=== PATIENT | female | born 1965 | race Caucasian/White ===

== ENCOUNTER 2019-09-11 17:00 | Emergency (ER) | payer MEDICAID, SELFPAY ==
[2019-09-11 17:28] VITALS: BP 155/99; PULSE 76; RESP 14; TEMP 36.6; O2SAT 96; BMI 35.5
--- NOTE | 2019-09-11 17:31 | XR_ITS ---
WS: [id number] XR ankle RT min 3V* [id number] REASON FOR EXAM: fall FINDINGS: The ankle mortise is normal. The fibula, talus, and tibia show no definite fractures. The posterior shelf the tibia was intact. The visible portion of the upper foot is normal. XR/XR ankle RT min 3V* [id number] IMPRESSION: Negative right ankle for fractures
--- NOTE | 2019-09-11 17:50 | W.ED.EXTPRO ---
HPI - Extremity Problem General: Chief complaint: Extremity Injury, Lower Stated complaint: ankle pain Time Seen by Provider: 09/11/19 17:40 History of Present Illness: HPI Narrative: Patient complains about right ankle pain after stepping backwards in her foot turned and now she has had pain in that ankle happened 45 minutes ago Complaint: joint pain Onset (ago): minute(s) Pain Consistency: constant Location: right and lower extremity Severity scale (1-10): 4 Quality: aching Radiation: none Relieving factors: immobilization and rest Exacerbating factors: range of motion and weight bearing Associated symptoms: Reports no associated symptoms; Deny chest pain, fever(s) or rash Review of Systems Const: Denies: fever(s), chills or body aches Eyes: Denies: change in vision or blurry vision ENMT: Denies: throat pain or nasal congestion Card: Denies: chest pain or dyspnea on exertion Resp: Denies: dyspnea, productive cough or non-productive cough GI: Denies: abdominal pain, nausea or vomiting Musc: Denies: extremity pain Skin/Breast: Denies: rash Neuro: Denies: headache(s) Psych: Denies: anxiety or depression Jason/Lymph: Denies: easy bruising PFSH ED PFSH: Social History Smoking and tobacco status: former smoker Physical Exam Extremity: RIGHT LOWER EXTREMITY: Yes foot & digits (Tender to lateral malleus mild swelling distal neurovascular intact) Course Vital Signs: Vital signs: Vital Signs Temperature 97.9 F 09/11/19 17:28 Pulse Rate 76 09/11/19 17:28 Respiratory Rate 14 09/11/19 17:28 Blood Pressure 155/99 09/11/19 17:28 Pulse Oximetry 96 09/11/19 17:28 Discharge Plan Discharge Condition: Good Coding Level of Care Code 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
[2019-09-11 17:57] VITALS: BP 117/68; PULSE 72; RESP 18; O2SAT 98
== END 2019-09-11 18:15 | disposition home or self-care (01) ==
PROVIDERS: Emergency Provider Nurse Practitioner Family
DX: M25.571 Pain in right ankle and joints of right foot (principal); Z87.891 Personal history of nicotine dependence
CPT/HCPCS: 12345; 73610; 99281; 99282

== ENCOUNTER → 2020-05-13 15:51 | Outpatient (BNVA) | payer MEDICAID, SELFPAY | PROVIDERS: Visit Provider Nurse Practitioner Family | DX: Z20.828 Contact with and (suspected) exposure to other viral communicable diseases (principal) | CPT/HCPCS: 87635 ==

== ENCOUNTER 2020-06-17 13:23 | Emergency (ER) | payer MEDICAID, SELFPAY ==
[2020-06-17 13:28] VITALS: BP 148/88; PULSE 103; RESP 20; TEMP 37.1; O2SAT 95; BMI 33.9
[2020-06-17 13:32] VITALS: BP 143/87; PULSE 96; RESP 16; O2SAT 96
--- NOTE | 2020-06-17 13:47 | CT_ITS ---
WS: [id number] CT ABDOMEN PELVIS TECHNIQUE: Noncontrast CT of the abdomen and pelvis with coronal and sagittal reformatted images. CLINICAL INFORMATION: acute bleeding COMPARISON: None. DLP: 1815.[address] scans at [facility] use at least one of these dose optimization techniques: automat ed exposure control; mA and/or kV adjustment per patient size (includes targeted exams where dose is matched to clinical indication); or iterative reconstruction. FINDINGS:Midline abdominal incision with low-attenuation fluid collection in the subcutaneous adipose tissue. This measures approximately 9.7 x 10.9 x 4.5 CM. Surrounding induration and inflammatory str anding. This extends along the ventral aspect of the rectus sheath. Noncontrast liver is normal. Cholecystectomy clips. Noncontrast spleen is normal. Normal GE junction . Adrenal glands are normal. No hydronephrosis in either kidney. Mild fatty atrophy of the pancreas. Lung bases are well aerated. Postoperative changes evidence of low rectosigmoid resection. No evidence of high-grade small or larg e bowel obstruction. Aortic calcification. Normal caliber abdominal aorta. No abdominal or pelvic lym phadenopathy. CT/CT abdomen pelvis wo con [id number] IMPRESSION: 1. Low-attenuation collection along the abdominal incision and ventral aspect of the rectus sheath measuring 9.7 x 10.9 x 4.5 CM likely hematoma. Small amoun t of surrounding induration and inflammatory stranding. 2. Evidence of flow rectosigmoid anastomosis. 3. Prior cholecystectomy. 4. No other significant findings. Notified Rush Aquino MD at 06/17/2020 3:04 PM.
--- NOTE | 2020-06-17 13:52 | ECG_ITS ---
[facility] Test Date: 2020-06-17 Pat Name: Nasrin Gilmore Department: Room: Gender: Female Carrier Blower: : 1965 Requested By: Rush Aquino Order Number: [id number] Maurilio MD: Marty Bhardwaj M.D. Measurements Intervals [place] Rate: 97 P: 38 SD: 174 QRS: -5 QRSD: 94 T: 22 QT: 325 QTc: 413 Interpretive Statements SINUS RHYTHM WITH OCCASIONAL VENTRICULAR PREMATURE COMPLEXES LOW QRS VOLTAGE IN PRECORDIAL LEADS [QRS DEFLECTION < 1.0 mV IN CHEST LEADS] POSSIBLE ANTERIOR MYOCARDIAL INFARCTION , PROBABLY OLD [30 ms Q WAVE IN V3/V4, OR R < 0.2 mV IN V4] No previous ECG available for comparison Electronically Signed On 06-17-2020 23:52:43 ROUGHER MACHINE OPERATOR by Marty Bhardwaj M.D. [id number]
--- NOTE | 2020-06-17 14:04 | W.ED.WOUNDLC ---
HPI - Wound/Laceration General: Chief Complaint: Wound/Laceration Stated Complaint: ab pain, passing blood Time Seen by Provider: 06/17/20 13:40 History of Present Illness: HPI narrative: The patient is a 55-year-old female who comes to the ER with acute bleeding of her belly. Approximately 4 weeks ago at [facility] she had surgery of her abdomen with a vertical incision to reanastomose her intestines. Prior to that she had had an ileostomy likely related to she says diverticulitis. She says they had to remove part of her large intestine and just reconnected it 4 weeks ago. Last night she sat down to use the restroom and the wound opened up with some bloody drainage. This morning she went to change her dressing and it began flowing like a fountain. She called her surgeon who recommended she come to the nearest facility. She arrives here and does have significant bleeding from a small open wound. Likely an open blood vessel somewhere. Review of Systems General: Reports: 10 or more systems reviewed and unremarkable except in HPI and below Const: Denies: fatigue Eyes: Denies: change in vision, blurry vision or eye redness ENMT: Denies: throat pain, swelling of lips/tongue, ear or mastoid pain or nasal congestion Card: Denies: chest pain, palpitations, irregular heart rhythm, edema, dyspnea on exertion or orthopnea Resp: Denies: dyspnea, productive cough or non-productive cough GI: Reports: abdominal pain and other (Acute bleeding); Denies: diarrhea or GI cramping : Denies: flank pain, difficulty voiding, urinary frequency or urinary urgency Musc: Denies: neck pain, back pain, extremity pain, joint pain, joint redness, limited range of motion or muscle weakness Skin/Breast: Denies: rash, pruritus, erythema, skin pain or skin tenderness Neuro: Denies: headache(s), numbness in extremities, weakness in extremities, sensory changes, difficulty walking, dizziness, confusion or Slurred speech present Psych: Denies: anxiety or depression Endo: Denies: polyuria All/Imm: Denies: urticaria, throat swelling or tongue swelling PFSH ED PFSH: Social History (Updated 05/13/20 @ 14:44 by Jordyn Novoa NP) Smoking and tobacco status: former smoker Alcohol intake: never Physical Exam Const: COMMON NORMALS: patient oriented x3 and alert GENERAL APPEARANCE: anxious and ill appearing NUTRITIONAL APPEARANCE: obese ORIENTATION/CONSCIOUSNESS: Yes oriented to person, Yes oriented to place and Yes oriented to time HENMT: COMMON NORMALS: normocephalic, external ears normal and Normal external nose present HEAD & SCALP: normal to inspection and normocephalic NOSE: Normal external nose present EXTERNAL EAR: Yes external ears normal MOUTH: Normal oral and palatal mucosa present THROAT: posterior oropharynx normal Eye: COMMON NORMALS: Equal, round and reactive pupils present and EOMs intact bilaterally GENERAL EYE: appearance normal, both eyes and all related structures PUPIL: Yes Equal, round and reactive pupils present Neck/C-Spine: COMMON NORMALS: full ROM, no lymphadenopathy, no meningeal signs and no JVD GENERAL: Yes normal visual inspection Lymph: LYMPHATIC: no lymphadenopathy noted Chest: COMMONS NORMALS: normal inspection of the chest and normal palpation of entire chest wall Resp: COMMON NORMALS: normal respiratory effort, No retractions, No use of accessory muscles, clear to auscultation bilaterally and percussion normal EFFORT & INSPECTION: Yes able to speak in complete sentences AUSCULTATION: clear to auscultation bilaterally PERCUSSION: percussion normal Cardio: COMMON NORMALS: no JVD, regular rhythm, S1 normal heart sound present, S2 normal heart sound present and Peripheral pulses 2+ throughout RATE: tachycardic RHYTHM: regular rhythm HEART SOUNDS: S1 normal heart sound present and S2 normal heart sound present PERIPHERAL PULSES: Peripheral pulses 2+ throughout GI: COMMON NORMALS: Soft to palpation and no masses INSPECTION: Yes normal to inspection PALPATION: Yes Soft to palpation OTHER: The patient has a midline vertical surgical scar healing appropriately in most places. In the lower aspect there is an open area when there is no pressure the blood flows profusely. With application of a finger the bleeding stops. : COMMON NORMALS: Yes no CVA tenderness BLADDER/KIDNEY EXAM: Yes no CVA tenderness Back/Pelvis: COMMON NORMALS: no CVA tenderness, thoracic and lumbar spine normal to inspection, no thoracic nor lumbar tenderness and thoraco-lumbar ROM normal Extremity: COMMON NORMALS: normal to inspection, full ROM, capillary refill normal, no joint enlargement and no pedal edema GENERAL: Yes normal exam except as noted Neuro: COMMON NORMALS: patient oriented x3, CN's II-XII intact bilaterally, moves all extremities, no focal motor deficits, no sensory deficits noted and gait normal SENSORIUM/ORIENTATION: Yes alert, Yes oriented to person, Yes oriented to place and Yes oriented to time MENINGEAL SIGNS: Yes no meningeal signs Psych: COMMON NORMALS: mental status grossly normal, Normal thought process present, cooperative, normal affect and speech normal ATTITUDE: Yes calm SPEECH: Yes normal speech THOUGHT PROCESS: Normal thought process present Skin: COMMON NORMALS: no rashes or lesions noted NARRATIVE SKIN EXAM: Pale GENERAL SKIN EXAM: no rashes or lesions noted Course Vital Signs: Vital signs: Vital Signs Temperature 98.8 F 06/17/20 13:28 Pulse Rate 103 H 06/17/20 13:28 Respiratory Rate 20 H 06/17/20 13:28 Blood Pressure 148/88 06/17/20 13:28 Pulse Oximetry 95 06/17/20 13:28 MDM - Wound/Laceration MDM Narrative: Medical decision making narrative: Discussed with Dr. Peterson who recommends flying to [place] to see her surgeon. Dr. Skelton at [facility] accepts transfer to ED. Helicopter en route. Hanging 1 unit O- PRBC due to acute blood loss. IV fluids as well. She is stable for transfer. Removed bandages and bleeding controllable with a single finger of pressure. Placed in abdominal binder with pressure and bleeding controlled. CT pending. Transfer terri. Discharge Plan Discharge Patient Disposition: Xfer Other Clinical Impression: Abdominal hemorrhage Condition: Critical Coding Level of Care Code ED Coordinator Of Genetic Services for [facility] 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
[2020-06-17] MEDS: sodium chloride 0.9% 500 ML IV (14:14)
--- NOTE | 2020-06-17 14:21 | PC.NURSE ---
ABD BINDER PLACED ON PT WIHT ABD PADS TO CREATE PRESSURE DRESSING
[2020-06-17 14:35] VITALS: BP 143/87; PULSE 92; RESP 18; TEMP 36.7; O2SAT 97
[2020-06-17] MEDS: ondansetron 2 mg/ML SDV 2 mL 4 MG IVP (14:41)
[2020-06-17 14:45] LABS: Lactate (Lactic Acid level) 1.6 mmol/L (0.5-2.2)
[2020-06-17 14:46] VITALS: BP 143/87; PULSE 97; RESP 16; O2SAT 95
--- NOTE | 2020-06-17 14:47 | PC.NURSE ---
EMERGENT RELEASE BLOOD WAS STARTED ON PT AT 1435. SEE DOCUMENTED VS
[2020-06-17 14:51] VITALS: BP 143/87; PULSE 98; RESP 18; O2SAT 97
[2020-06-17 14:55] LABS: Alanine Aminotransferase 13 U/L (0-33); Albumin Level 4.1 g/dL (3.5-5.2); Alkaline Phosphatase 140 IU/L (35-105); Anion Gap 15.2 (5-19); Aspartate Amino Transferase 17 U/L (0-32); Blood Urea Nitrogen 9 mg/dL (6-20); Calcium 9.5 mg/dL (8.5-10.5); Carbon Dioxide 23 mmol/L (22-29); Chloride 98 mmol/L (98-107); Globulin 3.8 g/dL (1.3-4.6); Glucose 102 mg/dL (65-115); Lipase 35 U/L (13-60); NT Pro B Type Natriuretic Pept 88 pg/mL (0-125); Osmolality Calculated 275 mOsm/kg (285-295); Potassium 3.2 mmol/L (3.5-5.1); Sodium 133 mmol/L (136-145); Total Bilirubin 0.5 mg/dL (0.15-1.2); Total Protein 7.9 g/dL (6.6-8.7)
[2020-06-17 16:49] LABS: Basophils # 0.1 10^3/uL (0.0-0.1); Eosinophils # 0.2 10^3/uL (0.0-0.8); Hematocrit 36.5 % (37.0-47.0); Hemoglobin 11.3 g/dL (11.5-15.3); Lymphocytes # 3.6 10^3/uL (0.8-4.8); Lymphocytes % 34.5 %; Mean Corpuscular Hemoglobin 28.1 pg (28.0-34.0); Mean Corpuscular Volume 90.8 fL (81-99); Mean Platelet Volume 11.5 fL (7.4-10.4); Monocytes # 0.7 10^3/uL (0.2-0.9); Monocytes % 6.5 %; Neutrophils # 5.84 10^3/uL (1.8-7.7); Neutrophils % 55.7 %; Nucleated Red Blood Cells % 0 %; Platelet Count 248 10^3/cmm (130-400); Red Blood Count 4.02 10^6/uL (4.1-5.3); White Blood Count 10.5 10^3/uL (4.0-10.0)
== END 2020-06-17 15:03 | disposition other institution (70) ==
PROVIDERS: Nurse Practitioner Family; Emergency Provider Family Medicine
DX: R58 Hemorrhage, not elsewhere classified (principal); Z87.891 Personal history of nicotine dependence
CPT/HCPCS: 36415; 74176; 80053; 83605; 83690; 83880; 85025; 86850; 86900; 86920; 93005; 96374; 99285; J2405; J7040; P9016

== ENCOUNTER → 2020-12-22 12:00 | Outpatient (BNVA) | payer MEDICAID, SELFPAY | PROVIDERS: Visit Provider Nurse Practitioner Family | DX: Z20.822 Contact with and (suspected) exposure to COVID-19 (principal); J06.9 Acute upper respiratory infection, unspecified | CPT/HCPCS: 87426 ==

== ENCOUNTER → 2021-05-18 16:15 | Outpatient (BNVA) | payer MEDICAID, SELFPAY | PROVIDERS: Visit Provider Nurse Practitioner Family | DX: Z20.822 Contact with and (suspected) exposure to COVID-19 (principal); Z95.5 Presence of coronary angioplasty implant and graft; E11.9 Type 2 diabetes mellitus without complications; I10 Essential (primary) hypertension; Z87.891 Personal history of nicotine dependence; J06.9 Acute upper respiratory infection, unspecified; Z71.89 Other specified counseling | CPT/HCPCS: 87635 ==

== ENCOUNTER 2021-12-15 19:52 | Emergency (ER) | payer MEDICAID, SELFPAY ==
[2021-12-15 20:28] VITALS: BP 150/86; PULSE 89; RESP 19; TEMP 36.4; O2SAT 92
--- NOTE | 2021-12-15 20:33 | ECG_ITS ---
[facility] Test Date: 2021-12-15 Pat Name: Nasrin Gilmore Department: Room: Gender: Female Taxonomy Teacher: : 1965 Requested By: Tracy Adams Order Number: [id number] Maurilio MD: Justine Rascon M.D. Measurements Intervals [place] Rate: 88 P: 38 HI: 172 QRS: -3 QRSD: 95 T: 5 QT: 343 QTc: 415 Interpretive Statements SINUS RHYTHM MODERATE T-WAVE ABNORMALITY, CONSIDER ANTERIOR ISCHEMIA [-0.1+ mV T-WAVE IN V3/V4] Compared to ECG 06/17/2020 14:04:56 T-wave abnormality now present Possible ischemia now present Ventricular premature complex(es) no longer present Myocardial infarct finding no longer present Electronically Signed On 12-16-2021 17:34:41 CDT by Justine Rascon M.D. [email or web address] [facility] [email or web address]/store/[id number] f
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
[2021-12-15 21:30] VITALS: RESP 18
[2021-12-15] MEDS: morphine 4 mg/mL SDV 1 mL IM (21:30)
[2021-12-15] MEDS: ondansetron 2 mg/ML SDV 2 mL 4 MG IM (21:31)
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
[2021-12-15 21:34] LABS: Basophils # 0.1 10^3/uL (0.0-0.1); Basophils % 1.4 %; Eosinophils # 0.3 10^3/uL (0.0-0.8); Eosinophils % 2.8 %; Hemoglobin 13.1 g/dL (11.5-15.3); Lymphocytes % 39.6 %; Mean Corpuscular HGB Conc 32.8 g/dL (30.0-36.0); Mean Corpuscular Volume 88.7 fl (81-99); Monocytes # 0.5 10^3/uL (0.2-0.9); Monocytes % 4.9 %; Neutrophils # 5.11 10^3/uL (1.8-7.7); Nucleated Red Blood Cells % 0 %; Platelet Count 210 10^3/cmm (130-400); Red Blood Count 4.51 10^6/uL (4.1-5.3); Red Cell Distribution Width 13.3 % (12.1-15.1)
[2021-12-15 22:13] LABS: Blood Urea Nitrogen 13 mg/dL (6-20); Carbon Dioxide 24 mmol/L (22-29); Chloride 94 mmol/L (98-107); Glomerular Filtration Rate 74.7 mL/min (90-130); Glucose 371 mg/dL (65-115); Osmolality Calculated 285 mOsm/kg (285-295); Sodium 130 mmol/L (136-145)
[2021-12-15 22:14] LABS: Troponin(5th) Baseline 8 ng/L (0-10)
[2021-12-15 22:15] LABS: Anion Gap 16.4 (5-19); Potassium 4.4 mmol/L (3.5-5.1)
[2021-12-15] MEDS: ondansetron 2 mg/ML SDV 2 mL 4 MG IVP (22:17)
--- NOTE | 2021-12-15 22:23 | ECG_ITS ---
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 Measurements Intervals [place] Rate: 74 P: 50 [place]: 176 QRS: -7 QRSD: 98 T: 2 QT: 363 QTc: 404 Interpretive Statements SINUS RHYTHM ST DEVIATION AND MODERATE T-WAVE ABNORMALITY, CONSIDER ANTEROLATERAL ISCHEMIA [-0.1+ mV T-WAVE IN V3-V6] Compared to ECG 12/15/2021 20:25:43 No significant changes Electronically Signed On 12-16-2021 19:48:14 CDT by Madi Koroma M.D. [email or web address]/store/[id number]
[2021-12-15 23:07] VITALS: BP 123/71; PULSE 76; RESP 18; O2SAT 92
--- NOTE | 2021-12-15 23:21 | ECG_ITS ---
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 Measurements Intervals [place] Rate: 72 P: 42 [place]: 181 QRS: -7 QRSD: 98 T: -4 QT: 376 QTc: 412 Interpretive Statements SINUS RHYTHM ST DEVIATION AND MODERATE T-WAVE ABNORMALITY, CONSIDER ANTEROLATERAL ISCHEMIA [-0.1+ mV T-WAVE IN V3-V6] Compared to ECG 12/15/2021 22:23:18 No significant changes Electronically Signed On 12-16-2021 19:55:10 CDT by Madi Koroma M.D. [id number]
[2021-12-15 23:53] LABS: Troponin 5 2HR 6.04 ng/L (0-10)
[2021-12-16 00:32] LABS: Troponin 5 2HR Delta -1.96 ABS# (0-10)
== END 2021-12-16 00:07 | disposition home or self-care (01) ==
PROVIDERS: Emergency Medicine; Emergency Provider Emergency Medicine
DX: M54.2 Cervicalgia (principal); M54.9 Dorsalgia, unspecified; R07.9 Chest pain, unspecified; V43.32XA Unspecified car occupant injured in collision with other type car in nontraffic accident, initial encounter; I10 Essential (primary) hypertension; E78.5 Hyperlipidemia, unspecified; E11.9 Type 2 diabetes mellitus without complications
CPT/HCPCS: 70450; 71250; 72125; 74176; 80048; 84484; 85025; 93005; 96374; 99285; J2270; J2405

== ENCOUNTER 2022-06-30 23:36 | Emergency (ER) | payer MEDICAID, SELFPAY ==
--- NOTE | 2022-06-30 23:39 | XRR_ITS ---
PROCEDURE INFORMATION: Exam: XR Chest Exam date and time: 07/01/2022 12:17 AM Age: 57 years old Clinical indication: Pain; Chest pressure; Additional info: Cp TECHNIQUE: Imaging protocol: Radiologic exam of the chest. Views: 1 view. COM[place]ISON: [place] [id number] 12/15/2021 9:03 PM FINDINGS: Lungs: Mild lower lung atelectasis or scarring. No consolidation. Pleural spaces: Unremarkable. No pleural effusion. No pneumothorax. Heart/Mediastinum: Unremarkable. No cardiomegaly. Bones/joints: Unremarkable. XR/XR chest 1V portable [id number] IMPRESSION: No acute findings.
--- NOTE | 2022-06-30 23:39 | ECG_ITS ---
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 Measurements Intervals [place] Rate: 82 P: 54 [place]: 177 QRS: 25 QRSD: 84 T: 38 QT: 343 QTc: 402 Interpretive Statements SINUS RHYTHM Compared to ECG 12/15/2021 23:46:09 T-wave abnormality no longer present Possible ischemia no longer present Electronically Signed On 07-01-2022 7:40:15 CDT by Madi Koroma M.D. [id number]
[2022-06-30 23:42] VITALS: BP 158/86; PULSE 86; RESP 21; TEMP 36.9; O2SAT 96; BMI 34.3
--- NOTE | 2022-06-30 23:48 | ED_ITS ---
HPI - Chest Pain General: Chief Complaint: Chest Pain Stated Complaint: Chest pain Time Seen by Provider: 06/30/22 23:39 Source: patient and EMS Mode of arrival: EMS Limitations: no limitations History of Present Illness: She [id number] female chest pain this evening states very sharp pain in the center of her chest states it does radiate to her back. Pain is currently an 8 out of 10 she denies any shortness of breath she denies any cough or fever she states it is worse with palpation no improvement. Associated symptoms: Deny abdominal pain, dyspnea, fever(s), nausea or vomiting Review of Systems Const: Denies: fever(s), chills, body aches or change in appetite Eyes: Denies: blurry vision or eye discomfort ENMT: Denies: throat pain or dental pain Card: Reports: chest pain Resp: Denies: dyspnea GI: Denies: abdominal pain, nausea, vomiting or diarrhea : Denies: dysuria Musc: Denies: neck pain or back pain Skin/Breast: Denies: rash Neuro: Denies: headache(s) Psych: Denies: depression Jason/Lymph: Denies: easy bruising All/Imm: Denies: urticaria PFSH ED PFSH: Medical History COPD (chronic obstructive pulmonary disease) Diabetes Hyperlipemia Social History Smoking and tobacco status: former smoker Alcohol intake: never Physical Exam Const: COMMON NORMALS: no acute distress, patient oriented x3 and healthy appearing HENMT: COMMON NORMALS: normocephalic and atraumatic HEAD & SCALP: normocephalic and atraumatic Eye: COMMON NORMALS: Equal, round and reactive pupils present and EOMs intact bilaterally PUPIL: Yes Equal, round and reactive pupils present Neck/C-Spine: COMMON NORMALS: full ROM and supple Chest: COMMONS NORMALS: normal inspection of the chest OTHER: point tender in center of chest reproduces pain Resp: COMMON NORMALS: normal respiratory effort, No retractions, No use of accessory muscles and clear to auscultation bilaterally AUSCULTATION: clear to auscultation bilaterally Cardio: COMMON NORMALS: regular rate, regular rhythm and No murmurs present (Cardio) RATE: regular rate RHYTHM: regular rhythm GI: COMMON NORMALS: Normal to inspection, nondistended, normoactive bowel sounds present, Soft to palpation, non-tender and no masses PALPATION: Yes Soft to palpation Extremity: COMMON NORMALS: normal to inspection and full ROM Neuro: COMMON NORMALS: patient oriented x3, moves all extremities and no focal motor deficits Psych: COMMON NORMALS: mental status grossly normal, Normal thought process present and cooperative THOUGHT PROCESS: Normal thought process present Skin: COMMON NORMALS: no rashes or lesions noted and no wounds GENERAL SKIN EXAM: no rashes or lesions noted Course Vital Signs: Vital signs: Vital Signs Temperature 98.4 F 06/30/22 23:42 Pulse Rate 86 06/30/22 23:42 Respiratory Rate 21 H 06/30/22 23:42 Blood Pressure 158/86 06/30/22 23:42 Pulse Oximetry 96 06/30/22 23:42 Oxygen Delivery Me thod 06/30/22 23:42 MDM - Chest Pain Medical Decision Making Patient presents here with chest pains atypical in nature troponins here are normal CT scan shows a pneumonitis she has a history of COPD she feels improved here she had no PE no signs acute coronary syndrome we will treat with doxycycline she is to follow-up with her PCP and return if worsening. Lab Data 07/01/22 00:05 07/01/22 00:05 Radiology Impressions Chest X-Ray 06/30/22 23:39 IMPRESSION: No acute findings. Chest/Abdomen/Pelvis CT 07/01/22 01:15 IMPRESSION: 1. No focal PE visualized. 2. Mild COPD with areas of scattered diffuse ground-glass density. Subtle infection/pneumonitis likely. These findings have progressed from 12/15/2021. Likely mild reactive mediastinal and hilar lymphadenopathy. In this patient, a 3 to 6-month follow-up is reasonable. 3. Other chronic findings above. IMPRESSION: 1. No small bowel obstruction, abscess or free air. 2. Large liver, postop changes, and other chronic findings again noted. Laboratory Results WBC 17.9 10^3/uL (4.0-10.0) H 07/01/22 00:05 RBC 4.61 10^6/uL (4.1-5.3) 07/01/22 00:05 Hgb 13.3 g/dL (11.5-15.3) 07/01/22 00:05 Hct 40.9 % (37.0-47.0) 07/01/22 00:05 MCV 88.7 fl (81-99) 07/01/22 00:05 MCH 28.9 pg (28.0-34.0) 07/01/22 00:05 MCHC 32.5 g/dL (30.0-36.0) 07/01/22 00:05 RDW 13.8 % (12.1-15.1) 07/01/22 00:05 Plt Count 229 10^3/cmm (130-400) 07/01/22 00:05 MPV 11.1 fL (7.4-10.4) H 07/01/22 00:05 Lymph % (Auto) Not Reportable 07/01/22 00:05 [place] % (Auto) Not Reportable 07/01/22 00:05 Lymph # (Auto) Not Reportable 07/01/22 00:05 [place] # (Auto) Not Reportable 07/01/22 00:05 Total Counted 100 (0-100) 07/01/22 00:05 Atypical Lymphs % 0.0 % (0-5) 07/01/22 00:05 Absolute Neutrophils 12.5 10^3/cmm (1.4-6.5) H 07/01/22 00:05 Segmented Neutrophils 70 % 07/01/22 00:05 Abs Segm Neuts (Man) 12.5 10/cmm (1.6-7.1) H 07/01/22 00:05 Band Neutrophils 0.0 % 07/01/22 00:05 Abs Band Neuts (Man) 0.0 10^3/cmm (0.0-1.2) 07/01/22 00:05 Absolute Lymphocytes 4.7 10^3/cmm (1.2-3.4) H 07/01/22 00:05 Lymphocytes (Manual) 26 % 07/01/22 00:05 Monocytes (Manual) 1.0 % 07/01/22 00:05 Absolute Monocytes 0.2 10^3/cmm (0.1-0.6) 07/01/22 00:05 Eosinophils (Manual) 3 % 07/01/22 00:05 Absolute Eosinophils 0.5 10^3/cmm (0.0-0.7) 07/01/22 00:05 Basophils (Manual) 0.0 % 07/01/22 00:05 Absolute Basophils 0.0 10^3/cmm (0.0-0.2) 07/01/22 00:05 Platelet Estimate Normal (Normal) 07/01/22 00:05 Sodium 135 mmol/L (136-145) L 07/01/22 00:05 Potassium 4.0 mmol/L (3.5-5.1) 07/01/22 00:05 Chloride 97 mmol/L (98-107) L 07/01/22 00:05 Carbon Dioxide 23 mmol/L (22-29) 07/01/22 00:05 Anion Gap 19.0 (5-19) 07/01/22 00:05 BUN 12 mg/dL (6-20) 07/01/22 00:05 Creatinine 0.7 mg/dL (0.5-0.9) 07/01/22 00:05 GFR Calculation 86.9 mL/min (90-130) L 07/01/22 00:05 Glucose 164 mg/dL (65-115) H 07/01/22 00:05 POC Glucose 181 mg/dL (70-110) H 07/01/22 00:10 Calculated Osmolality 283 mOsm/kg (285-295) L 07/01/22 00:05 Calcium 9.3 mg/dL (8.5-10.5) 07/01/22 00:05 Total Bilirubin 0.3 mg/dL (0.15-1.2) 07/01/22 00:05 AST 20 U/L (0-32) 07/01/22 00:05 ALT 20 U/L (0-33) 07/01/22 00:05 Alkaline Phosphatase 140 U/L (35-105) H 07/01/22 00:05 Troponin T Baseline 6 ng/L (0-10) 07/01/22 00:05 Troponin T 120 Minute 7.75 ng/L (0-10) 07/01/22 02:15 Total Protein 6.8 g/dL (6.6-8.7) 07/01/22 00:05 Albumin 3.7 g/dL (3.5-5.2) 07/01/22 00:05 Globulin 3.1 g/dL (1.3-4.6) 07/01/22 00:05 Lipase 50 U/L (13-60) 07/01/22 00:05 Urine Color Yellow (Yellow) 07/01/22 02:04 Urine Appearance Clear (CLEAR) 07/01/22 02:04 Urine pH 8 (5-7) H 07/01/22 02:04 Ur Specific [place] 1.015 (1.005-1.030) 07/01/22 02:04 Urine Protein Neg (Negative) 07/01/22 02:04 Urine Glucose (UA) Norm (Normal) 07/01/22 02:04 Urine Ketones Negative (Negative) 07/01/22 02:04 Urine Blood Neg (Negative) 07/01/22 02:04 Urine Nitrate Negative (Negative) 07/01/22 02:04 Urine Bilirubin Neg (Negative) 07/01/22 02:04 Prot Sulfosalicylic Acd Negative (Negative) 07/01/22 02:04 Urine Urobilinogen Norm mg/dL (Negative) 07/01/22 02:04 Ur Leukocyte Esterase Negative (Negative) 07/01/22 02:04 EKG Data EKG 1: I personally reviewed and interpreted this EKG as follows: EKG interpretation date: 06/30/22 EKG interpretation time: 23:42 Interpretation: nsr hr [address] or t wave abnormalities qrs 84 qtc 381 EKG 2: I personally reviewed and interpreted this EKG as follows: EKG interpretation date: 07/01/22 EKG interpretation time: 01:38 Interpretation: Normal sinus rhythm heart rate [address] or T wave normality QRS 85 QTc 399 Discharge Plan Discharge Patient Disposition: Home Clinical Impression: Chest pain, Pneumonia Condition: Stable Prescriptions: New doxycycline hyclate 100 mg tablet 100 mg PO BID 7 Days Qty: 14 0RF No Action aspirin 81 mg tablet,delayed release (DR/EC) 81 mg PO DAILY nitroglycerin 0.4 mg tablet, sublingual 0.4 mg sublingual Q5M PRN (Reason: Chest Pain) Rx Instructions: do not exceed 3 doses per episode atorvastatin 20 mg tablet 20 mg PO BEDTIME amoxicillin-pot clavulanate 875-125 mg tablet 1 tab PO Q12H 7 Days Qty: 14 0RF hydrocodone-acetaminophen 10-325 mg tablet 1 tab PO Q8H omeprazole 40 mg capsule,delayed release(DR/EC) 40 mg PO BEDTIME metoprolol succinate 25 mg tablet extended release 24 hr 25 mg PO DAILY ProAir HFA 90 mcg/actuation HFA aerosol inhaler 2 puff INHALATION Q6H PRN (Reason: Shortness Of Breath Or Wheezing) Tylenol PM Extra Strength 25-500 mg Tablet 2 tab PO BEDTIME metformin 500 mg tablet extended release 24 hr 500 mg PO DAILY lisinopril 2.5 mg tablet 2.5 mg PO BID methocarbamol 750 mg tablet 750 mg PO Q6H PRN (Reason: spasms) Qty: 20 0RF Naprosyn 500 mg tablet 500 mg PO BID PRN (Reason: pain) Qty: 20 0RF Discharge Orders: Discharge ED (Routine); Ordered 07/01/22 Ordered By: Arvin Frye Referrals: Josephine Cary MD [Primary Care Provider] - 1-3 days Discharge Diet: Advance as tolerated Discharge Activity: Resume usual activity Patient Instructions: Chest Pain (ED), Pneumonia (ED) Coding Level of Care Code ED [employer]
[2022-07-01] MEDS: morphine 4 mg/mL SDV 1 mL IVP (00:06)
[2022-07-01] MEDS: ondansetron 2 mg/ML SDV 2 mL 4 MG IVP (00:06)
[2022-07-01 00:14] LABS: Glucose Point of Care 181 mg/dL (70-110)
[2022-07-01 00:27] LABS: Hematocrit 40.9 % (37.0-47.0); Hemoglobin 13.3 g/dL (11.5-15.3); Mean Corpuscular HGB Conc 32.5 g/dL (30.0-36.0); Mean Corpuscular Hemoglobin 28.9 pg (28.0-34.0); Mean Corpuscular Volume 88.7 fl (81-99); Mean Platelet Volume 11.1 fL (7.4-10.4); Platelet Count 229 10^3/cmm (130-400); Red Blood Count 4.61 10^6/uL (4.1-5.3); Red Cell Distribution Width 13.8 % (12.1-15.1); White Blood Count 17.9 10^3/uL (4.0-10.0)
[2022-07-01 00:45] VITALS: BP 151/79; PULSE 82; RESP 20; O2SAT 93
[2022-07-01 00:47] LABS: Troponin(5th) Baseline 6 ng/L (0-10)
[2022-07-01 00:48] LABS: Alanine Aminotransferase 20 U/L (0-33); Albumin Level 3.7 g/dL (3.5-5.2); Alkaline Phosphatase 140 U/L (35-105); Aspartate Amino Transferase 20 U/L (0-32); Blood Urea Nitrogen 12 mg/dL (6-20); Calcium 9.3 mg/dL (8.5-10.5); Carbon Dioxide 23 mmol/L (22-29); Chloride 97 mmol/L (98-107); Globulin 3.1 g/dL (1.3-4.6); Glomerular Filtration Rate 86.9 mL/min (90-130); Glucose 164 mg/dL (65-115); Lipase 50 U/L (13-60); Osmolality Calculated 283 mOsm/kg (285-295); Sodium 135 mmol/L (136-145); Total Bilirubin 0.3 mg/dL (0.15-1.2); Total Protein 6.8 g/dL (6.6-8.7)
--- NOTE | 2022-07-01 01:15 | CTR_ITS ---
PROCEDURE INFORMATION: Exam: CTA Chest With Contrast Exam date and time: 07/01/2022 1:24 AM Age: 57 years old Clinical indication: Pain and abnormal findings; Abnormal lab test; Other: N/a; Chest pressure; Prior surgery; Surgery type: Bowel due to perforation; Patient HX: C/O chest and upper back pain. Nausea. Diaphoresis. Elevated wbc. ; Additional info: Cp TECHNIQUE: Imaging protocol: Computed tomographic angiography of the chest with contrast. 3D rendering (Not supervised by radiologist): MIP and/or 3D reconstructed images were created by the technologist. Radiation optimization: All CT scans at this facility use at least one of these dose optimization techniques: automated exposure control; mA and/or kV adjustment per patient size (includes targeted exams where dose is matched to clinical indication); or iterative reconstruction. Contrast material: OMNI 350; Contrast volume: 100 ml; Contrast route: INTRAVENOUS (IV); REPORTING DATA: Count of CT and Cardiac NM exams in prior 12 months: This patient has received 3 known CTs and 0 known cardiac nuclear medicine studies in the 12 months prior to the current study. COMPARISON[place] [id number] 12/15/2021 9:03 PM RADIATION DOSE METRICS: Total DLP (mGy-cm): 1492.85 FINDINGS: Pulmonary arteries: No main, lobar, or segmental PE identified. Aorta: Advanced diffuse vascular calcification noted. No aortic aneurysm. No aortic dissection. Lungs: Mild COPD. Patchy areas of diffuse hazy ground-glass density noted. A few minute bilateral subcentimeter lung nodules are again noted. These may be followed in 6-12 months. Pleural spaces: No pneumothorax. No pleural effusion noted. Heart: The heart is not enlarged. No pericardial effusion is noted. Lymph nodes: Mild likely reactive mediastinal and bilateral hilar lymphadenopathy. Bones/joints: [id number] thoracic spine DJD. Mild scoliosis. Soft tissues: Unremarkable. PROCEDURE INFORMATION: Exam: CT Abdomen And Pelvis With Contrast Exam date and time: 07/01/2022 1:24 AM Age: 57 years old Clinical indication: Pain and abnormal findings; Abnormal lab test; Other: N/a; Chest pressure; Prior surgery; Surgery type: Bowel due to perforation; Patient HX: C/O chest and upper back pain. Nausea. Diaphoresis. Elevated wbc. ; Additional info: Cp TECHNIQUE: Imaging protocol: Computed tomography of the abdomen and pelvis with contrast. Radiation optimization: All CT scans at this facility use at least one of these dose optimization techniques: automated exposure control; mA and/or kV adjustment per patient size (includes targeted exams where dose is matched to clinical indication); or iterative reconstruction. Contrast material: OMNI 350; Contrast volume: 100 ml; Contrast route: INTRAVENOUS (IV); REPORTING DATA: Count of CT and Cardiac NM exams in prior 12 months: This patient has received 3 known CTs and 0 known cardiac nuclear medicine studies in the 12 months prior to the current study. COMPARISON: [place] [id number] 12/15/2021 9:03 PM RADIATION DOSE METRICS: Total DLP (mGy-cm): 1492.85 FINDINGS: Lungs: See above chest CT report. Liver: Liver is large. No enhancing liver mass. Gallbladder and bile ducts: Absent gallbladder. Pancreas: Unremarkable with no suspicious mass. No ductal dilation. Spleen: The spleen is not enlarged. No suspicious enhancing mass is noted. Adrenal glands: Normal. No mass. Kidneys and ureters: No solid renal mass or hydronephrosis. Stomach and bowel: Very fecal filled colon. Rectosigmoid anastomotic postop changes. No small bowel dilation. Mild colonic diverticulosis. Right mid abdominal mesenteric postop change. Appendix: No evidence of appendicitis. Intraperitoneal space: No abscess or free air. Vasculature: Advanced diffuse vascular calcification noted. Focal unchanged abdominal aortic chronic luminal flap on series 6, image 40. This has not changed going back to 06/17/2020. No AAA or acute finding. Lymph nodes: No enlarged lymph nodes. Urinary bladder: Unremarkable as visualized. Reproductive: Absent uterus. Bones/joints: Ywep-ox-hnerxsha spine DJD. Soft tissues: Anterior abdominal wall postop change and scarring. CT/CT angio chest w abd pel w con IMPRESSION: 1. No focal PE visualized. 2. Mild COPD with areas of scattered diffuse ground-glass density. Subtle infection/pneumonitis likely. These findings have progressed from 12/15/2021. Likely mild reactive mediastinal and hilar lymphadenopathy. In this patient, a 3 to 6-month follow-up is reasonable. 3. Other chronic findings above. IMPRESSION: 1. No small bowel obstruction, abscess or free air. 2. Large liver, postop changes, and other chronic findings again noted.
[2022-07-01] MEDS: iohexol 350 mg/mL 500 mL Btl (per mL) IV (01:28)
--- NOTE | 2022-07-01 01:38 | ECG_ITS ---
[facility] Test Date: 2022-07-01 Pat Name: Nasrin Gilmore Department: Room: Gender: Female Account Review Specialist: : [id number] Requested By: Arvin Frye Order Number: [id number] Maurilio MD: Marty Bhardwaj M.D. Measurements Intervals [place] Rate: 79 P: 60 MN: 187 QRS: 29 QRSD: 85 T: 44 QT: 364 QTc: 420 Interpretive Statements SINUS RHYTHM NONSPECIFIC T-WAVE ABNORMALITY Compared to ECG 06/30/2022 23:42:48 T-wave abnormality now present Electronically Signed On 07-01-2022 22:56:06 CDT by Marty Bhardwaj M.D. [email or web address] In/[id number]
[2022-07-01 01:39] LABS: Absolute Eosinophils 0.5 10^3/cmm (0.0-0.7); Absolute Segmented Neutrophil 12.5 10/cmm (1.6-7.1); Eosinophils 3 %; Lymphocytes 26 %; Lymphocytes Absolute 4.7 10^3/cmm (1.2-3.4); Monocytes Absolute 0.2 10^3/cmm (0.1-0.6); Segmented Neutrophils 70 %; Total Cells Counted 100 (0-100)
[2022-07-01 01:40] LABS: Absolute Neutrophil 12.5 10^3/cmm (1.4-6.5); Platelet Estimate Normal (Normal)
[2022-07-01 01:45] VITALS: BP 167/79; PULSE 79; O2SAT 92
[2022-07-01 02:07] LABS: Add Urine Microscopic? NO; Charge for UA Resulting for Rev
[2022-07-01 02:26] LABS: Urine Appearance Clear (CLEAR); Urine Color Yellow (Yellow)
[2022-07-01 02:28] LABS: Bilirubin Urine Neg (Negative); Blood Urine Neg (Negative); Glucose Urine UA Norm (Normal); Ketones Urine Negative (Negative); Nitrate Urine Negative (Negative); Protein Urine Neg (Negative); Specific Gravity, Urine 1.015 (1.005-1.030); pH Urine 8 (5-7)
[2022-07-01 02:29] LABS: Leukocyte Esterase Urine Negative (Negative); Sulfosalicylic Acid Urine Negative (Negative); Urobilinogen Urine Norm (Negative)
[2022-07-01 02:42] LABS: Troponin 5 2HR 7.75 ng/L (0-10)
[2022-07-01 02:45] VITALS: BP 163/84; PULSE 71; RESP 17; O2SAT 94
[2022-07-01] MEDS: doxycycline 100 mg Tablet PO (03:02)
[2022-07-01] MEDS: dexamethasone 10 mg/mL INJ IVP (03:03)
[2022-07-01 03:11] LABS: Troponin 5 2HR Delta 1.75 ABS# (0-10)
[2022-07-01 05:08] VITALS: BP 169/72; O2SAT 92
== END 2022-07-01 03:10 | disposition home or self-care (01) ==
PROVIDERS: Emergency Provider Emergency Medicine; PCP Family Medicine
DX: R07.9 Chest pain, unspecified (principal); J18.9 Pneumonia, unspecified organism; Z79.84 Long term (current) use of oral hypoglycemic drugs; J44.9 Chronic obstructive pulmonary disease, unspecified; E11.9 Type 2 diabetes mellitus without complications; E78.5 Hyperlipidemia, unspecified; Z87.891 Personal history of nicotine dependence
CPT/HCPCS: 36416; 71045; 71275; 74177; 80053; 81003; 82962; 83690; 84484; 85007; 85025; 93005; 96374; 96375; 99285; J1100; J2270; J2405; Q9967

== ENCOUNTER 2022-08-14 21:10 | Emergency (ER) | payer MEDICAID, SELFPAY ==
[2022-08-14 21:14] VITALS: BP 166/77; PULSE 106; RESP 20; TEMP 37; O2SAT 92; BMI 35.6
--- NOTE | 2022-08-14 22:40 | XRR_ITS ---
PROCEDURE INFORMATION: Exam: XR Chest Exam date and time: 08/14/2022 10:45 PM Age: 57 years old Clinical indication: Shortness of breath; Additional info: SOB TECHNIQUE: Imaging protocol: Radiologic exam of the chest. Views: 1 view. COMPARISON: CR (CHEST, ) 07/01/2022 12:17 AM FINDINGS: Lungs: No consolidative pulmonary infiltrates are noted. Minimal linear fibrosis in the lower left lung. Pleural spaces: No pleural effusion. No pneumothorax. Heart/Mediastinum: No cardiomegaly. Bones/joints: Degenerative thoracic spine changes are noted. XR/XR chest 1V portable [id number] IMPRESSION: 1. No acute abnormality demonstrated. 2. There is no interval change from the prior examination.
--- NOTE | 2022-08-14 22:40 | ECG_ITS ---
[facility] Test Date: 2022-08-14 Pat Name: Nasrin Gilmore Department: Room: Gender: Female Proposal Rep: : 1965 Requested By: John Palmer Order Number: [id number] Maurilio MD: Rizwan Garcia M.D. Measurements Intervals [place] Rate: 82 P: 60 MO: 174 QRS: 12 QRSD: 94 T: 36 QT: 345 QTc: 404 Interpretive Statements SINUS RHYTHM Compared to ECG 07/01/2022 01:38:20 T-wave abnormality no longer present Electronically Signed On 08-15-2022 10:24:03 CDT by Rizwan Garcia M.D. [id number]
[2022-08-14 22:48] VITALS: PULSE 101; RESP 18; O2SAT 93
[2022-08-14] MEDS: ipratropium-albuterol 3 mL Neb INHALATION (22:48)
[2022-08-14 23:11] LABS: Basophils % 0.2 %; Eosinophils % 0.1 %; Hematocrit 44.4 % (37.0-47.0); Hemoglobin 14.4 g/dL (11.5-15.3); Lymphocytes # 4.7 10^3/uL (0.8-4.8); Mean Corpuscular HGB Conc 32.4 g/dL (30.0-36.0); Mean Corpuscular Hemoglobin 28.9 pg (28.0-34.0); Mean Platelet Volume 10.8 fL (7.4-10.4); Monocytes # 0.6 10^3/uL (0.2-0.9); Monocytes % 4.4 %; Neutrophils # 8.75 10^3/uL (1.8-7.7); Neutrophils % 61.5 %; Nucleated Red Blood Cells % 0 %; Platelet Count 275 10^3/cmm (130-400); Red Blood Count 4.99 10^6/uL (4.1-5.3); White Blood Count 14.2 10^3/uL (4.0-10.0)
[2022-08-14 23:26] LABS: Lactic Sepsis W/Reflex 2.1 mmol/L (0.5-2.2)
[2022-08-14 23:28] LABS: Slide Review Slide Review Perform
[2022-08-14 23:29] LABS: Alanine Aminotransferase 34 U/L (0-33); Albumin Level 4.4 g/dL (3.5-5.2); Alkaline Phosphatase 188 U/L (35-105); Anion Gap 17.4 (5-19); Aspartate Amino Transferase 22 U/L (0-32); Blood Urea Nitrogen 18 mg/dL (6-20); Calcium 9.8 mg/dL (8.5-10.5); Carbon Dioxide 26 mmol/L (22-29); Chloride 94 mmol/L (98-107); Globulin 3.5 g/dL (1.3-4.6); Glucose 356 mg/dL (65-115); Osmolality Calculated 292 mOsm/kg (285-295); Potassium 4.4 mmol/L (3.5-5.1); Sodium 133 mmol/L (136-145); Total Bilirubin 0.2 mg/dL (0.15-1.2); Total Protein 7.9 g/dL (6.6-8.7)
[2022-08-14] MEDS: dexamethasone 10 mg/mL INJ IVP (23:36)
[2022-08-14 23:37] LABS: NT Pro B Type Natriuretic Pept 205 pg/mL (0-125)
[2022-08-15 00:17] VITALS: BP 140/75; PULSE 86; RESP 16; O2SAT 93
[2022-08-15 00:37] LABS: SARS Covid-2 Antigen negative (Negative)
[2022-08-15 00:54] LABS: Reflex Lactate Order REFLEX LACTIC ORDERD
[2022-08-15] MEDS: FUROsemide 10 mg/mL SDV 10mL 60 MG IVP (01:17)
[2022-08-15 01:30] VITALS: BP 126/92; PULSE 78; RESP 16; O2SAT 92
[2022-08-15 01:41] LABS: Lactic Acid level (Lactate) 2.1 mmol/L (0.5-2.2)
[2022-08-15 02:48] VITALS: BP 134/83; PULSE 80; RESP 17; O2SAT 92
--- NOTE | 2022-08-15 16:00 | W.ED.SOB ---
HPI - SOB/Dyspnea General: Chief Complaint: Upper Respiratory Infection Stated Complaint: chest congestion Time Seen by Provider: 08/14/22 22:20 Source: patient History of Present Illness: HPI Narrative: 57 year old female treated last week for bronchitis at urgent care period she was placed on two different antibiotics and Prednisone. She reports she is no better period she's still coughing, with productive sputum, and ?feels like I'm drowning?. She also has been using an albuterol inhaler without much improvement. No documented fever. MD elicited complaint: shortness of breath and cough Pertinent past history: other Onset (ago): day(s) Context: recent illness Timing: constant Severity: moderate Exacerbating factors: lying flat and exertion Relieving factors: bronchodilators Known history of: other Associated symptoms: Reports chest congestion, cough, dizziness and nausea; Deny abdominal pain, chest pain, fever(s) or vomiting Treatment prior to arrival: bronchodilator and other Related Data: Home oxygen amount: none Review of Systems Const: Denies: fever(s) ENMT: Denies: throat pain Card: Denies: chest pain Resp: Reports: dyspnea, productive cough and chest congestion GI: Reports: nausea; Denies: abdominal pain or vomiting Skin/Breast: Denies: rash Neuro: Reports: dizziness [facility] ED PFSH: Medical History COPD (chronic obstructive pulmonary disease) Diabetes Hyperlipemia Social History Smoking and tobacco status: former smoker Alcohol intake: never Substance/Drug Use: never Physical Exam Const: COMMON NORMALS: no acute distress GENERAL APPEARANCE: cooperative; not ill appearing and not frail appearing HENMT: COMMON NORMALS: normocephalic, atraumatic and Normal external nose present HEAD & SCALP: normocephalic and atraumatic FACE & SINUS: normal facial exam and face symmetric NOSE: Normal external nose present Eye: COMMON NORMALS: Equal, round and reactive pupils present and EOMs intact bilaterally PUPIL: Yes Equal, round and reactive pupils present Neck/C-Spine: GENERAL: Yes trachea midline Chest: CHEST: Yes Symmetrical chest wall rise Resp: COMMON NORMALS: normal respiratory effort, No retractions, No use of accessory muscles and clear to auscultation bilaterally AUSCULTATION: clear to auscultation bilaterally Cardio: COMMON NORMALS: regular rate and regular rhythm RATE: regular rate RHYTHM: regular rhythm GI: COMMON NORMALS: Normal to inspection, nondistended, normoactive bowel sounds present Extremity: COMMON NORMALS: no pedal edema Neuro: JUVENAL COMA SCALE: document GCS findings [place] coma scale eye opening: Spontaneous Juvenal coma scale verbal response: Orientated [place] coma scale motor response: Obey commands [place] coma scale total score: 15 SENSORY EXAM: Yes extremities (intact) Psych: COMMON NORMALS: speech normal SPEECH: Yes normal speech Skin: COMMON NORMALS: no rashes or lesions noted GENERAL SKIN EXAM: no rashes or lesions noted Course Vital Signs: Vital signs: Vital Signs Temperature 98.6 F 08/14/22 21:14 Pulse Rate 80 08/15/22 02:48 Respiratory Rate 17 08/15/22 02:48 Blood Pressure 134/83 08/15/22 02:48 Pulse Oximetry 92 08/15/22 02:48 Oxygen Delivery Me thod Room Air 08/15/22 00:17 MDM - SOB/Dyspnea Medical Decision Making Vitals are stable here. CBC shows elevation in white blood cell count of 14, likely related to steroid use. Otherwise not remarkable. BMP shows an elevated blood sugar at 356. Otherwise not remarkable. Chest X-ray is negative. BNP is 205. COVID is negative. She is not having chest discomfort. She is given IV lasix here with good diuresis, and improvement in her shortness of breath. We will continue this for the next couple of days. We will extend her Prednisone in the form of a taper. We will switch her antibiotic to doxycycline. She knows to return for any worsening symptoms. Lab Data 08/14/22 22:57 08/14/22 22:57 Labs/Radiology: Radiology Impressions Chest X-Ray 08/14/22 22:40 IMPRESSION: 1. No acute abnormality demonstrated. 2. There is no interval change from the prior examination. Laboratory Results WBC 14.2 10^3/uL (4.0-10.0) H 08/14/22 22:57 RBC 4.99 10^6/uL (4.1-5.3) 08/14/22 22:57 Hgb 14.4 g/dL (11.5-15.3) 08/14/22 22:57 Hct 44.4 % (37.0-47.0) 08/14/22 22:57 MCV 89.0 fl (81-99) 08/14/22 22:57 MCH 28.9 pg (28.0-34.0) 08/14/22 22:57 MCHC 32.4 g/dL (30.0-36.0) 08/14/22 22:57 RDW 14.0 % (12.1-15.1) 08/14/22 22:57 Plt Count 275 10^3/cmm (130-400) 08/14/22 22:57 MPV 10.8 fL (7.4-10.4) H 08/14/22 22:57 Neut % (Auto) 61.5 % 08/14/22 22:57 Lymph % (Auto) 33.0 % 08/14/22 22:57 [place] % (Auto) 4.4 % 08/14/22 22:57 Eos % (Auto) 0.1 % 08/14/22 22:57 Baso % (Auto) 0.2 % 08/14/22 22:57 Neut # (Auto) 8.75 10^3/uL (1.8-7.7) H 08/14/22 22:57 Lymph # (Auto) 4.7 10^3/uL (0.8-4.8) 08/14/22 22:57 [place] # (Auto) 0.6 10^3/uL (0.2-0.9) 08/14/22 22:57 Eos # (Auto) 0.0 10^3/uL (0.0-0.8) 08/14/22 22:57 Baso # (Auto) 0.0 10^3/uL (0.0-0.1) 08/14/22 22:57 Nucleated RBC % (auto) 0 % 08/14/22 22:57 Nucleated RBCs # 0.0 /100WBC 08/14/22 22:57 Sodium 133 mmol/L (136-145) L 08/14/22 22:57 Potassium 4.4 mmol/L (3.5-5.1) 08/14/22 22:57 Chloride 94 mmol/L (98-107) L 08/14/22 22:57 Carbon Dioxide 26 mmol/L (22-29) 08/14/22 22:57 Anion Gap 17.4 (5-19) 08/14/22 22:57 BUN 18 mg/dL (6-20) 08/14/22 22:57 Creatinine 0.9 mg/dL (0.5-0.9) 08/14/22 22:57 GFR Calculation 65.0 mL/min (90-130) L 08/14/22 22:57 Glucose 356 mg/dL (65-115) H 08/14/22 22:57 Calculated Osmolality 292 mOsm/kg (285-295) 08/14/22 22:57 Lactic Acid 2.1 mmol/L (0.5-2.2) 08/14/22 22:57 Lactic Acid (Sepsis) 2.1 mmol/L (0.5-2.2) 08/15/22 01:20 Calcium 9.8 mg/dL (8.5-10.5) 08/14/22 22:57 Total Bilirubin 0.2 mg/dL (0.15-1.2) 08/14/22 22:57 AST 22 U/L (0-32) 08/14/22 22:57 ALT 34 U/L (0-33) H 08/14/22 22:57 Alkaline Phosphatase 188 U/L (35-105) H 08/14/22 22:57 NT-Pro-B Natriuret Pep 205 pg/mL (0-125) H 08/14/22 22:57 Total Protein 7.9 g/dL (6.6-8.7) 08/14/22 22:57 Albumin 4.4 g/dL (3.5-5.2) 08/14/22 22:57 Globulin 3.5 g/dL (1.3-4.6) 08/14/22 22:57 SARS-CoV-2 Ag (Rapid) negative (Negative) 08/15/22 00:01 Discharge Plan Discharge Patient Disposition: Home Clinical Impression: Bronchitis Condition: Stable Prescriptions: New prednisone 10 mg tablet 10 mg PO DIRECTED Qty: 28 0RF Rx Instructions: 4 po [id number], 2po [id number], [id number] Lasix 20 mg tablet 20 mg PO DAILY Qty: 3 0RF doxycycline hyclate 100 mg tablet 100 mg PO BID 7 Days Qty: 14 0RF No Action aspirin 81 mg tablet,delayed release (DR/EC) 81 mg PO DAILY nitroglycerin 0.4 mg tablet, sublingual 0.4 mg sublingual Q5M PRN (Reason: Chest Pain) Rx Instructions: do not exceed 3 doses per episode atorvastatin 20 mg tablet 20 mg PO BEDTIME prednisone 20 mg tablet 60 mg PO DAILY 5 Days Qty: 15 0RF cefdinir 300 mg capsule 300 mg PO BID 10 Days Qty: 20 0RF azithromycin [Zithromax Z-Jv] 250 mg tablet See Rx Instructions PO .COMPLEX Qty: 6 0RF Rx Instructions: For 250 mg dose pack: take 500 mg today (day 1), then 250 mg for 4 days (days 2-5) PO albuterol sulfate 90 mcg/actuation HFA aerosol inhaler 2 inh inhalation Q4H PRN (Reason: shortness of breath or wheezing) Qty: 6.7 0RF hydrocodone-acetaminophen 10-325 mg tablet 1 tab PO Q8H omeprazole 40 mg capsule,delayed release(DR/EC) 40 mg PO BEDTIME metoprolol succinate 25 mg tablet extended release 24 hr 25 mg PO DAILY ProAir HFA 90 mcg/actuation HFA aerosol inhaler 2 puff INHALATION Q6H PRN (Reason: Shortness Of Breath Or Wheezing) Tylenol PM Extra Strength 25-500 mg Tablet 2 tab PO BEDTIME metformin 500 mg tablet extended release 24 hr 500 mg PO DAILY lisinopril 2.5 mg tablet 2.5 mg PO BID methocarbamol 750 mg tablet 750 mg PO Q6H PRN (Reason: spasms) Qty: 20 0RF Naprosyn 500 mg tablet 500 mg PO BID PRN (Reason: pain) Qty: 20 0RF Discharge Orders: Discharge ED (Routine); Ordered 08/15/22 Ordered By: John Shin Referrals: Josephine Cary MD [Primary Care Provider] - 1-3 days Patient Instructions: Acute Bronchitis (ED) Activity Restrictions/Additional Instructions: Finish your prednisone this morning, then follow the taper starting tomorrow. Use your albuterol inhaler every 4 hours while awake for the next 48 hours, then as needed. Switch your antibiotics as we discussed to the new antibiotic. Take the furosemide (water pill) daily for the next 3 days. Return for worsening shortness of breath despite treatment, chest pain despite treatment, fever greater than 100 despite 2-3 doses of antibiotics, any other concerning symptoms. See your doctor this week. Coding Level of Care Code ED Expanding Machine Operator for Almaz Vrede
== END 2022-08-15 02:53 | disposition home or self-care (01) ==
PROVIDERS: Emergency Provider Emergency Medicine; PCP Family Medicine
DX: J44.9 Chronic obstructive pulmonary disease, unspecified (principal); Z79.82 Long term (current) use of aspirin; Z79.84 Long term (current) use of oral hypoglycemic drugs; Z20.822 Contact with and (suspected) exposure to COVID-19; E11.9 Type 2 diabetes mellitus without complications; E78.5 Hyperlipidemia, unspecified; Z87.891 Personal history of nicotine dependence
CPT/HCPCS: 36415; 71045; 80053; 83605; 83880; 85025; 87040; 87426; 93005; 94640; 96374; 96375; 99285; J1100; J1940

== ENCOUNTER 2023-12-29 08:26 | Emergency (ER) | payer MEDICAID, SELFPAY ==
[2023-12-29 08:46] VITALS: BP 149/82; PULSE 94; RESP 18; TEMP 36.7; O2SAT 99; BMI 37.8
--- NOTE | 2023-12-29 10:16 | ED_ITS ---
HPI - Skin/Abscess/Foreign Bdy General: Chief complaint: Skin/Abscess/Foreign Body Stated complaint: Blisters on stomach and legs burning pain Time Seen by Provider: 12/29/23 10:10 Source: patient Mode of arrival: ambulatory Limitations: no limitations History of Present Illness: 58-year-old female states she has not malhotra d a rash had a spot on her leg and then her abdomen states she is started on Bactroban on Tuesday from urgent care and states that symptoms worsen she had worse erythema especially to the one of her abdomen. Denies any fevers denies any drainage denies any severe pain Associated symptoms: Deny chills, fever(s), nausea or vomiting Related Data Home Medications Medication Instructions Recorded Confirmed aspirin 81 mg tablet,delayed 81 mg PO DAILY 05/13/20 12/23/23 release atorvastatin 20 mg tablet 20 mg PO BEDTIME 05/13/20 12/23/23 nitroglycerin 0.4 mg sublingual 0.4 mg sublingual Q5M PRN Chest 05/13/20 12/23/23 tablet Pain albuterol sulfate 90 mcg/actuation 2 puff inhalation Q6H PRN 12/15/21 12/23/23 aerosol inhaler (ProAir HFA) Shortness Of Breath Or Wheezing diphenhydramine 25 2 tab PO BEDTIME SLEEP 12/15/21 12/23/23 mg-acetaminophen 500 mg tablet (Tylenol PM Extra Strength) hydrocodone 10 mg-acetaminophen 1 tab PO Q8H 12/15/21 12/23/23 325 mg tablet lisinopril 2.5 mg tablet 2.5 mg PO BID 12/15/21 12/23/23 metformin 500 mg tablet,extended 500 mg PO DAILY 12/15/21 12/23/23 release 24 hr metoprolol succinate 25 mg 25 mg PO DAILY 12/15/21 12/23/23 tablet,extended release 24 hr omeprazole 40 mg capsule,delayed 40 mg PO BEDTIME 12/15/21 12/23/23 release Previous Rx's Medication Instructions Recorded albuterol sulfate 90 mcg/actuation 2 inh inhalation Q4H PRN shortness 08/10/22 aerosol inhaler of breath or wheezing #6.7 grams mupirocin 2 % topical ointment 1 applic topical BID 7 days #22 12/23/23 grams sulfamethoxazole 800 1 tab PO BID 10 days #20 tabs 12/29/23 mg-trimethoprim 160 mg tablet (Bactrim DS) Allergies Allergy/AdvReac Type Severity Reaction Status Date / Time No Known Allergies Allergy Verified 12/23/23 14:07 Review of Systems Const: Denies: fever(s), chills, body aches or change in appetite ENMT: Denies: throat pain or dental pain Card: Denies: chest pain Resp: Denies: dyspnea GI: Denies: abdominal pain, nausea, vomiting or diarrhea Musc: Denies: neck pain or back pain Skin/Breast: Reports: rash Neuro: Denies: headache(s) PFSH ED PFSH: Medical History Diabetes Hyperlipemia COPD (chronic obstructive pulmonary disease) Social History Smoking and tobacco/nicotine status: never used tobacco/nicotine Alcohol intake: never Substance/Drug Use: never Physical Exam Const: COMMON NORMALS: no acute distress, patient oriented x3 and healthy appearing HENMT: COMMON NORMALS: normocephalic and atraumatic HEAD & SCALP: normocephalic and atraumatic Neck/C-Spine: COMMON NORMALS: full ROM and supple Chest: COMMONS NORMALS: normal inspection of the chest Resp: COMMON NORMALS: normal respiratory effort Cardio: COMMON NORMALS: regular rate, regular rhythm and No murmurs present (Cardio) RATE: regular rate RHYTHM: regular rhythm GI: COMMON NORMALS: Soft to palpation, non-tender and no masses PALPATION: Yes Soft to palpation OTHER: Erythema noted to right lower abdomen no drainage or abscess Extremity: COMMON NORMALS: normal to inspection and full ROM Neuro: COMMON NORMALS: patient oriented x3, moves all extremities and no focal motor deficits Psych: COMMON NORMALS: mental status grossly normal, Normal thought process present and cooperative THOUGHT PROCESS: Normal thought process present Skin: COMMON NORMALS: no wounds Course Vital Signs: Vital signs: Vital Signs Temperature 98.0 F 12/29/23 08:46 Pulse Rate 94 12/29/23 08:46 Respiratory Rate 18 12/29/23 08:46 Blood Pressure 149/82 12/29/23 08:46 Pulse Oximetry 99 12/29/23 08:46 Oxygen Delivery Me thod Room Air 12/29/23 08:46 MDM - Skin/Abscess/Foreign Bdy Medicial Decision Making Patient presents here with rash mainly in the abdomen does appear to have some surrounding cellulitis we will start her on Bactrim we will get her follow-up with her PCP informed if it worsen she is to follow-up with dermatology Medical Records I reviewed the patient's medical records. No radiology studies performed this visit Discharge Plan Discharge Patient Disposition: Home Clinical Impression: Rash, Cellulitis Condition: Stable Prescriptions: New Bactrim DS 800-160 mg tablet 1 tab PO BID 10 Days Qty: 20 0RF No Action aspirin 81 mg tablet,delayed release (DR/EC) 81 mg PO DAILY nitroglycerin 0.4 mg tablet, sublingual 0.4 mg sublingual Q5M PRN (Reason: Chest Pain) Rx Instructions: do not exceed 3 doses per episode atorvastatin 20 mg tablet 20 mg PO BEDTIME albuterol sulfate 90 mcg/actuation HFA aerosol inhaler 2 inh inhalation Q4H PRN (Reason: shortness of breath or wheezing) Qty: 6.7 0RF mupirocin 2 % ointment 1 applic topical BID 7 Days Qty: 22 0RF hydrocodone-acetaminophen 10-325 mg tablet 1 tab PO Q8H omeprazole 40 mg capsule,delayed release(DR/EC) 40 mg PO BEDTIME metoprolol succinate 25 mg tablet extended release 24 hr 25 mg PO DAILY ProAir HFA 90 mcg/actuation HFA aerosol inhaler 2 puff INHALATION Q6H PRN (Reason: Shortness Of Breath Or Wheezing) Tylenol PM Extra Strength 25-500 mg Tablet 2 tab PO BEDTIME metformin 500 mg tablet extended release 24 hr 500 mg PO DAILY lisinopril 2.5 mg tablet 2.5 mg PO BID Discharge Orders: Discharge ED (Routine); Ordered 12/29/23 Ordered By: Arvin Frye Referrals: Josephine Cary MD [Primary Care Provider] - 1-3 days Discharge Diet: Advance as tolerated Discharge Activity: Resume usual activity Patient Instructions: Rash - Nonspecific Coding Level of Care Code ED Yeast Distiller for Almaz Verde
[2023-12-29 10:25] VITALS: BP 139/79; PULSE 88; O2SAT 98
== END 2023-12-29 10:25 | disposition home or self-care (01) ==
PROVIDERS: Emergency Provider Emergency Medicine; PCP Family Medicine
DX: L03.311 Cellulitis of abdominal wall (principal); Z79.82 Long term (current) use of aspirin; Z79.84 Long term (current) use of oral hypoglycemic drugs; E11.9 Type 2 diabetes mellitus without complications; E78.5 Hyperlipidemia, unspecified; J44.9 Chronic obstructive pulmonary disease, unspecified
CPT/HCPCS: 99283

== ENCOUNTER 2024-05-18 09:06 | Emergency (ER) | payer MEDICAID, SELFPAY ==
[2024-05-18 09:20] VITALS: BP 154/108; PULSE 82; RESP 18; TEMP 36.6; O2SAT 92; BMI 36.0
--- NOTE | 2024-05-18 09:35 | W.ED.URI ---
HPI - URI/Sore Throat General: Chief Complaint: Upper Respiratory Infection Stated Complaint: cough conjestion Time Seen by Provider: 05/18/24 09:09 Source: patient Mode of arrival: ambulatory Limitations: no limitations History of Present Illness: Patient is a 59-year-old female who presents to ED today along with her granddaughter both here for identical symptoms consisting of cough and congestion. They were just seen by Dr. Mcdaniel at the walk-in clinic 2 days ago. Patient reportedly had diarrhea at that time but that has since subsided. No fevers. She arrives in NAD with stable vital signs. MD elicited complaint: cough, rhinorrhea and nasal congestion Onset (ago): day(s) Consistency: constant Severity: mild Description of mucous: clear Able to tolerate fluids by mouth: Yes Exacerbating factors: nothing Relieving factors: nothing Context: sick contacts (grand-daughter who she resides with is sick with same symptoms ) Associated symptoms: Reports diarrhea (few days ago; subsided) and nasal congestion; Deny abdominal pain, chills, chest pain, fever(s), headache(s) or vomiting Treatments prior to arrival: none Related Data Home Medications ?Medication ?Instructions ?Recorded ?Confirmed aspirin 81 mg tablet,delayed 81 mg PO DAILY 05/13/20 05/18/24 release atorvastatin 20 mg tablet 20 mg PO BEDTIME 05/13/20 05/18/24 nitroglycerin 0.4 mg sublingual 0.4 mg sublingual Q5M PRN Chest 05/13/20 05/18/24 tablet Pain diphenhydramine 25 2 tab PO BEDTIME SLEEP 12/15/21 05/18/24 mg-acetaminophen 500 mg tablet (Tylenol PM Extra Strength) hydrocodone 10 mg-acetaminophen 1 tab PO Q8H 12/15/21 05/18/24 325 mg tablet lisinopril 2.5 mg tablet 2.5 mg PO BID 12/15/21 05/18/24 metformin 500 mg tablet,extended 500 mg PO QPM 12/15/21 05/18/24 release 24 hr omeprazole 40 mg capsule,delayed 40 mg PO BEDTIME 12/15/21 05/18/24 release cetirizine 10 mg tablet 10 mg PO DAILY PRN Allergy Symptoms 05/18/24 05/18/24 fluticasone propionate 50 2 spray intranasal BID PRN 05/18/24 05/18/24 mcg/actuation nasal allergies spray,suspension Allergies Allergy/AdvReac Type Severity Reaction Status Date / Time No Known Allergies Allergy Verified 05/18/24 09:27 Review of Systems Const: Reports: fatigue; Denies: fever(s), chills, body aches or malaise ENMT: Reports: nasal discharge and nasal congestion; Denies: throat pain or odynophagia Card: Denies: chest pain Resp: Reports: non-productive cough and chest congestion GI: Reports: diarrhea (few days ago; subsided); Denies: abdominal pain or vomiting : Denies: flank pain or dysuria Musc: Denies: neck pain, back pain, extremity pain, joint swelling or joint redness Skin/Breast: Denies: rash Neuro: Denies: headache(s), numbness in extremities, weakness in extremities or sensory changes PFSH ED PFSH: Medical History Diabetes Hyperlipemia COPD (chronic obstructive pulmonary disease) Social History Smoking and tobacco/nicotine status: never used tobacco/nicotine Alcohol intake: never Substance/Drug Use: never Physical Exam Const: COMMON NORMALS: no acute distress, average body habitus, patient oriented x3, no limitations, healthy appearing, alert and well nourished GENERAL APPEARANCE: cooperative ORIENTATION/CONSCIOUSNESS: Yes awake, Yes oriented to person, Yes oriented to place and Yes oriented to time HENMT: COMMON NORMALS: normocephalic and atraumatic HEAD & SCALP: normal to inspection, normocephalic and atraumatic FACE & SINUS: normal facial exam NOSE: Nasal discharge present Eye: GENERAL EYE: appearance normal, both eyes and all related structures Neck/C-Spine: COMMON NORMALS: full ROM, no lymphadenopathy, supple and no meningeal signs Chest: COMMONS NORMALS: normal inspection of the chest Resp: COMMON NORMALS: normal respiratory effort and clear to auscultation bilaterally AUSCULTATION: clear to auscultation bilaterally Cardio: COMMON NORMALS: regular rate and regular rhythm RATE: regular rate RHYTHM: regular rhythm GI: COMMON NORMALS: Normal to inspection, nondistended, normoactive bowel sounds present, Soft to palpation, non-tender, No hepatosplenomegaly present and no masses PALPATION: Yes Soft to palpation and Yes No hepatosplenomegaly present Extremity: COMMON NORMALS: normal to inspection GENERAL: Yes normal exam except as noted Neuro: COMMON NORMALS: patient oriented x3 SENSORIUM/ORIENTATION: Yes alert, Yes oriented to person, Yes oriented to place and Yes oriented to time MENINGEAL SIGNS: Yes no meningeal signs Skin: COMMON NORMALS: no rashes or lesions noted GENERAL SKIN EXAM: no rashes or lesions noted Course Vital Signs: Vital signs: Vital Signs Temperature 97.9 F 05/18/24 09:20 Pulse Rate 82 05/18/24 09:20 Respiratory Rate 18 05/18/24 09:20 Blood Pressure 154/108 05/18/24 09:20 Pulse Oximetry 92 05/18/24 09:20 Oxygen Delivery Me thod Room Air 05/18/24 09:20 MDM - URI/Sore Throat Medical Decision Making Patient appears in no acute distress. She is here with her granddaughter both of which have identical symptoms. COVID/flu/RSV was negative. Recommend continued conservative therapies at home. Return to ED precautions discussed. Differential Diagnosis Likely upper respiratory infection, viral infection, bronchitis and influenza Medical Records I reviewed the patient's medical records. Lab Data I reviewed the patient's lab results. Laboratory Results Coronavirus (PCR) Negative (Negative) 05/18/24 09:24 Influenza A (PCR) Negative (Negative) 05/18/24 09:24 Influenza Type B (PCR) Negative (Negative) 05/18/24 09:24 RSV (PCR) Negative (Negative) 05/18/24 09:24 No radiology studies performed this visit Discharge Plan Discharge Patient Disposition: Home Clinical Impression: Viral upper respiratory tract infection with cough Condition: Stable Prescriptions: No Action aspirin 81 mg tablet,delayed release (DR/EC) 81 mg PO DAILY nitroglycerin 0.4 mg tablet, sublingual 0.4 mg sublingual Q5M PRN (Reason: Chest Pain) Rx Instructions: do not exceed 3 doses per episode atorvastatin 20 mg tablet 20 mg PO BEDTIME hydrocodone-acetaminophen 10-325 mg tablet 1 tab PO Q8H omeprazole 40 mg capsule,delayed release(DR/EC) 40 mg PO BEDTIME diphenhydramine-acetaminophen [Tylenol PM Extra Strength] 25-500 mg Tablet 2 tab PO BEDTIME metformin 500 mg tablet extended release 24 hr 500 mg PO QPM lisinopril 2.5 mg tablet 2.5 mg PO BID cetirizine 10 mg tablet 10 mg PO DAILY PRN (Reason: Allergy Symptoms) fluticasone propionate 50 mcg/actuation spray,suspension 2 spray INTRANASAL BID PRN (Reason: allergies) Discharge Orders: Discharge ED (Routine); Ordered 05/18/24 Ordered By: Allegra Mike Referrals: Josephine Cary MD [Primary Care Provider] - Patient Instructions: Upper Respiratory Infection (DC) Print Language: Wolof Coding Level of Care Code ED Sales And Marketing Assistant for Almaz Verde
[2024-05-18 10:11] LABS: Covid PCR NEGATIVE (Negative); Influenza A NEGATIVE (Negative); Influenza B NEGATIVE (Negative); Respiratory Syncytial Virus Ce NEGATIVE (Negative)
== END 2024-05-18 10:38 | disposition home or self-care (01) ==
PROVIDERS: Emergency Provider Physician Assistant; PCP Family Medicine
DX: J10.1 Influenza due to other identified influenza virus with other respiratory manifestations (principal); Z11.52 Encounter for screening for COVID-19; Z79.82 Long term (current) use of aspirin; Z79.84 Long term (current) use of oral hypoglycemic drugs; E11.9 Type 2 diabetes mellitus without complications; E78.5 Hyperlipidemia, unspecified; J44.9 Chronic obstructive pulmonary disease, unspecified
CPT/HCPCS: 87637; 99283

== ENCOUNTER 2024-05-28 13:01 | Inpatient (IN) | payer MEDICAID, SELFPAY ==
[2024-05-28] VITALS (19 sets, daily range): BP systolic 100–155; BP diastolic 59–97; PULSE 88–113; RESP 18–22; TEMP 37; O2SAT 89–94; BMI 36.0
--- NOTE | 2024-05-28 13:27 | ECG_ITS ---
[facility] Test Date: 2024-05-28 Pat Name: Nasrin Gilmore Department: Room: Gender: Female Heading Repairer: : [id number] Requested By: Trevon Turcios Order Number: [id number] Maurilio MD: Marty Bhardwaj M.D. Measurements Intervals [place] Rate: 103 P: 64 NH: 180 QRS: 7 QRSD: 87 T: 45 QT: 312 QTc: 410 Interpretive Statements SINUS TACHYCARDIA POSSIBLE LEFT ATRIAL ENLARGEMENT [-0.1mV P-WAVE IN V1/V2] LOW QRS VOLTAGE IN PRECORDIAL LEADS [QRS DEFLECTION < 1.0 mV IN CHEST LEADS] PATTERN CONSISTENT WITH PULMONARY DISEASE Compared to ECG 08/14/2022 23:56:42 Low QRS voltage now present Sinus rhythm no longer present Electronically Signed On 05-28-2024 20:28:13 [facility] by Marty Bhardwaj M.D. [email or web address]
--- NOTE | 2024-05-28 13:58 | XRR_ITS ---
PROCEDURE INFORMATION: Exam: XR Chest Exam date and time: 05/28/2024 2:05 PM Age: 59 years old Clinical indication: Shortness of breath; Copd per patient TECHNIQUE: Imaging protocol: Radiologic exam of the chest. Views: 1 view. COMPARISON: CR (CHEST, ) 08/14/2022 10:45 PM FINDINGS: Lungs: Lungs are clear bilaterally. Pleural spaces: No pleural effusion. No pneumothorax. Heart/Mediastinum: Stable mild enlargement of the cardiac silhouette. Mediastinal contours are unremarkable. Vasculature: Stable vascular calcifications in the aorta. Bones/joints: Unremarkable for age. XR/XR chest 1V portable [id number] IMPRESSION: 1. No acute cardiopulmonary process. 2. . Incidental/nonacute findings are listed in the report.
[2024-05-28] MEDS: ipratropium-albuterol 3 mL Neb INHALATION ×2 (14:15→22:00)
[2024-05-28] MEDS: albuterol 2.5 mg/3 mL Neb INHALATION (14:22)
--- NOTE | 2024-05-28 14:22 | ED_ITS ---
HPI - URI/Sore Throat 2 General: Chief Complaint: Upper Respiratory Infection Stated Complaint: flue symptoms Time Seen by Provider: 05/28/24 13:56 History of Present Illness: This is a 59-year-old female with a history of tobacco dependence in remission about 6 months and no known cardiac history, hypertension, diabetes and hyperlipidemia presents emergency room with cough and shortness of breath it has been going on for about 2 days now. Says she started feeling very weak when she walks. On presentation her O2 sats are in the upper 80s and low 90s on room air. No known fevers. No chest pain. No abdominal pain. No vomiting. Related Data Home Medications ?Medication ?Instructions ?Recorded ?Confirmed aspirin 81 mg tablet,delayed 81 mg PO DAILY 05/13/20 0 05/28/24 release atorvastatin 20 mg tablet 20 mg PO BEDTIME 05/13/20 nitroglycerin 0.4 mg sublingual 0.4 mg sublingual Q5M PRN Chest 05/13/20 05/28/24 tablet Pain hydrocodone 10 mg-acetaminophen 1 tab PO Q8H 12/15/21 05/28/24 325 mg tablet lisinopril 2.5 mg tablet 2.5 mg PO BID 12/15/2105/28 metformin 500 mg tablet,extended 500 mg PO QPM 2 05/28/24 release 24 hr omeprazole 40 mg capsule,delayed 40 mg PO BEDTIME 09/3005/28/24 release fluticasone propionate 50 2 spray intranasal BID PRN 0 05/18/24 05/28/24 mcg/actuation nasal allergies spray,suspension [id number] 6.25 30 ml PO QPM 05/28/24 05/28/24 mg-15 mg-325 mg/15 mL oral liquid (Night Time Cold and Flu Relief) Allergies Allergy/AdvReac Type Severity Reaction Status Date / Time STEROIDS Allergy Unknown Uncoded 05/28/24 13:24 Review of Systems 2 Narrative: Constitutional symptoms: Negative except as documented in HPI. Skin symptoms: Negative except as documented in HPI. Eye symptoms: Negative except as documented in HPI. ENMT symptoms: Negative except as documented in HPI. Respiratory symptoms: Negative except as documented in HPI. Cardiovascular symptoms: Negative except as documented in HPI. Gastrointestinal symptoms: Negative except as documented in HPI. Genitourinary symptoms: Negative except as documented in HPI. Musculoskeletal symptoms: Negative except as documented in HPI. Neurologic symptoms: Negative except as documented in HPI. Psychiatric symptoms: Negative except as documented in HPI. Endocrine symptoms: Negative except as documented in HPI. PFSH ED 2 PFSH: Medical History Diabetes Hyperlipemia COPD (chronic obstructive pulmonary disease) Social History Smoking and tobacco/nicotine status: never used tobacco/nicotine Alcohol intake: never Substance/Drug Use: never Physical Exam 2 Narrative: EXAM NARRATIVE: General: Alert, no acute distress. Skin: Warm, dry. Head: Normocephalic, atraumatic. Neck: Supple, trachea midline. Eye: Extraocular movements are intact. Ears, nose, mouth and throat: Oral mucosa moist. Cardiovascular: Regular rate and rhythm, Normal peripheral perfusion. Respiratory: some expiratory wheeze, mild increased wob, breath sounds are equal, Symmetrical chest wall expansion. Gastrointestinal: Soft, Nontender, Non distended, Normal bowel sounds. Musculoskeletal: Normal ROM, no deformity. Neurological: Alert and oriented to person, place, time, and situation, No focal neurological deficit observed. Psychiatric: Cooperative, appropriate mood & affect. Course 2 Vital Signs: Vital signs: Vital Signs Temperature 98.6 F 05/28/24 13:17 Pulse Rate 100 05/28/24 15:30 Respiratory Rate 22 H 05/28/24 14:17 Blood Pressure 129/77 05/28/24 15:30 Pulse Oximetry 91 05/28/24 15:30 Oxygen Delivery Me thod Nasal Cannula 05/28/24 15:30 Oxygen Flow Rate 1.5 05/28/24 15:30 MDM - URI/Sore Throat Medical Decision Making Differential diagnosis for patient with shortness of breath includes but is not limited to and based on the above HPI, review of systems and physical exam: Pneumonia. Bronchitis. Asthma or COPD with acute exacerbation. Acute coronary syndrome / [place]. Pulmonary embolism. Anxiety. Congestive heart failure. Viral infections including influenza and Covid-19. Atrial fibrillation. Anxiety. Pleural effusion. Pneumothorax. Orders placed to evaluate differential diagnosis based on the above differential, HPI and physical exam AB.4 7/34/71 with an O2 sat of 93% on room air EKG: Time 1327. Rate 103. Sinus tachycardia, No ST-T changes, no ectopy, normal [place] & QRS intervals, This was reviewed and interpreted by myself the ER physician at 1331. Repeat EKG: Time 1611. Rate 97. Normal sinus rhythm, No ST-T changes, no ectopy, normal [place] & QRS intervals, This was reviewed and interpreted by myself the ER physician at 1615. Rate has decreased by 6 bpm no longer sinus tachycardia. Chest x-ray: No acute process. No infiltrate. No pneumothorax. This was reviewed and interpreted by myself the emergency room physician. I also reviewed the radiology report. Lab Review: Laboratory results were reviewed and interpreted by myself the emergency room physician. No leukocytosis. No anemia. No renal failure. Glucose is a bit elevated at 297. Flu and COVID are negative. I reviewed the patient's medical record. Reexamination: Patient still has some wheeze after breathing treatments. We discussed that with her requiring oxygen she would need to be admitted and that with her admission we have been able to control her sugars better and so she has now agreed to taking some steroids as this is probably the best treatment for her wheeze and probable COPD exacerbation. We discussed that she likely does have COPD as she smoked for years. She is requiring 1-1/2 to 2 L of oxygen. Consultation: I spoke with Dr. Patterson who is on-call for the hospitalist service who agrees to admission. Assessment and plan: Hypoxemia Upper respiratory infection COPD with acute exacerbation Hyperglycemia Tobacco abuse in remission ?IV Solu-Medrol, IV insulin, multiple updrafts, IV Zofran. IV doxycycline. -I discussed the patient with the hospitalist on-call who is admitting the patient. - Discussed findings and plan with patient. Answered any questions. - All laboratory values were reviewed and interpreted personally by myself, the ER physician - All imaging was reviewed and interpreted personally by myself, the ER physician. - Evaluation and treatment of this problem were appropriate in the emergency setting Lab Data 05/28/24 14:17 05/28/24 14:17 Radiology Impressions Chest X-Ray 05/28/24 13:58 IMPRESSION: 1. No acute cardiopulmonary process. 2. . Incidental/nonacute findings are listed in the report. Laboratory Results WBC 8.47 10^3/uL (3.29-11.43) 05/28/24 14:17 RBC 4.92 10^6/uL (3.85-5.65) 05/28/24 14:17 Hgb 14.70 g/dL (11.27-16.99) 05/28/24 14:17 Hct 43.8 % (36-47) 05/28/24 14:17 MCV 89.0 fl (85-98) 05/28/24 14:17 MCH 29.9 pg (27-33) 05/28/24 14:17 MCHC 33.6 g/dL (30-55) 05/28/24 14:17 RDW 12.7 % (12.1-15.1) 05/28/24 14:17 Plt Count 197 10^3/cmm (157-399) 05/28/24 14:17 MPV 11.3 fL (7.4-10.4) H 05/28/24 14:17 Neut % (Auto) 63.4 % 05/28/24 14:17 Lymph % (Auto) 26.0 % 05/28/24 14:17 Walton % (Auto) 5.9 % 05/28/24 14:17 Eos % (Auto) 3.0 % 05/28/24 14:17 Baso % (Auto) 1.2 % 05/28/24 14:17 Neut # (Auto) 5.38 10^3/uL (1.8-7.7) 05/28/24 14:17 Lymph # (Auto) 2.2 10^3/uL (0.8-4.8) 05/28/24 14:17 Walton # (Auto) 0.5 10^3/uL (0.2-0.9) 05/28/24 14:17 Eos # (Auto) 0.3 10^3/uL (0.0-0.8) 05/28/24 14:17 Baso # (Auto) 0.1 10^3/uL (0.0-0.1) 05/28/24 14:17 Nucleated RBC % (auto) 0 % 05/28/24 14:17 Nucleated RBCs # 0.0 /100WBC 05/28/24 14:17 Specimen Type Arterial 05/28/24 14:14 Sample Site Radial, left 05/28/24 14:14 ABG pH 7.47 (7.35-7.45) H 05/28/24 14:14 ABG pCO2 33.6 mmHg (35-45) L 05/28/24 14:14 ABG pO2 71.1 mmHg (80.0-100.0) L 05/28/24 14:14 ABG PO2/FiO2 Ratio 338 05/28/24 14:14 ABG HCO3 24.7 mmol/L (22-26) 05/28/24 14:14 ABG O2 Saturation 95.7 05/28/24 14:14 ABG Base Excess 1.6 mmol/L (-2.0-2.0) 05/28/24 14:14 Ian Test Pos 05/28/24 14:14 A-a O2 Gradient 4.9 mmHg (5-10) L 05/28/24 14:14 Hematocrit 45.8 % (37-47) 05/28/24 14:14 Hgb O2 Saturation 93.9 % (95-100) L 05/28/24 14:14 Carboxyhemoglobin 1.6 %THgb (0.4-20.1) 05/28/24 14:14 Methemoglobin 0.3 % (0.4-1.5) L 05/28/24 14:14 Total Hemoglobin 14.9 g/dL (12-16) 05/28/24 14:14 Sodium 135.0 mmol/L (131-143) 05/28/24 14:14 Potassium 4.3 mmol/L (3.5-5.0) 05/28/24 14:14 Glucose 298.0 mg/dL (70-115) H 05/28/24 14:14 Ionized Calcium 1.2 mmol/L (1.1-1.4) 05/28/24 14:14 O2 Delivery Device Room air 05/28/24 14:14 FiO2 21.0 % 05/28/24 14:14 Anesthesiologist Assistant ID Monro 05/28/24 14:14 Sodium 133 mmol/L (136-145) L 05/28/24 14:17 Potassium 4.5 mmol/L (3.5-5.1) 05/28/24 14:17 Chloride 94 mmol/L (98-107) L 05/28/24 14:17 Carbon Dioxide 23 mmol/L (22-29) 05/28/24 14:17 Anion Gap 20.5 (5-19) H 05/28/24 14:17 BUN 9 mg/dL (6-20) 05/28/24 14:17 Creatinine 0.6 mg/dL (0.5-0.9) 05/28/24 14:17 GFR Calculation 103.0 mL/min (90-130) 05/28/24 14:17 Glucose 297 mg/dL (65-115) H 05/28/24 14:17 Calculated Osmolality 286 mOsm/kg (285-295) 05/28/24 14:17 Lactic Acid 1.9 mmol/L (0.5-2.2) 05/28/24 14:17 Calcium 10.0 mg/dL (8.5-10.5) 05/28/24 14:17 Total Bilirubin 0.5 mg/dL (0.15-1.2) 05/28/24 14:17 AST 28 U/L (0-32) 05/28/24 14:17 ALT 35 U/L (0-33) H 05/28/24 14:17 Alkaline Phosphatase 167 U/L (35-105) H 05/28/24 14:17 Troponin T Baseline 9 ng/L (0-10) 05/28/24 14:17 C-Reactive Protein 20.6 mg/L (0.0-4.9) H 05/28/24 14:17 NT-Pro-B Natriuret Pep 79 pg/mL (0-125) 05/28/24 14:17 Total Protein 7.8 g/dL (6.6-8.7) 05/28/24 14:17 Albumin 4.5 g/dL (3.5-5.2) 05/28/24 14:17 Globulin 3.3 g/dL (1.3-4.6) 05/28/24 14:17 Influenza A (PCR) Negative (Negative) 05/28/24 14:17 Influenza Type B (PCR) Negative (Negative) 05/28/24 14:17 RSV (PCR) Negative (Negative) 05/28/24 14:17 SARS-CoV-2 (PCR) Negative (Negative) 05/28/24 14:17 All radiology interpretation(s) finalized by discharge Discharge Plan Discharge Patient Disposition: Admitted As Inpatient Admit Provider: Alejandro Patterson Clinical Impression: COPD with acute exacerbation, Tobacco dependence in remission, Hypoxemia, Acute upper respiratory infection, Hyperglycemia, Diabetes mellitus Condition: Stable Coding Level of Care Code ED Medical Program Specialist for Almaz Verde
[2024-05-28 14:27] LABS: ABG PCO2 33.6 mmHg (35-45); ABG PH Result 7.47 (7.35-7.45); Alveolar-Arterial Oxygen Gradi 4.9 mmHg (5-10); Arterial Blood Gas Hematocrit 45.8 % (37-47); Base Excess ABG 1.6 mmol/L (-2.0-2.0); Blood Gas Allen Test Pos; Blood Gas Operator Identificat MONRO; Blood Gas Sample Site Radial, left; Blood Gas Sample Type Arterial; Carboxyhemoglobin 1.6 %THgb (0.4-20.1); HCO3 ABG 24.7 mmol/L (22-26); HGB O2 Sat 93.9 % (95-100); Ionized Calcium Level - ABG 1.2 mmol/L (1.1-1.4); Methemoglobin 0.3 % (0.4-1.5); Oxygen Device ROOM AIR; Oxygen Saturation ABG 95.7; PO2 ABG 71.1 mmHg (80.0-100.0); PO2 FiO2 Ratio Arterial Blood 338; Potassium Level - ABG 4.3 mmol/L (3.5-5.0); Total Hemoglobin 14.9 g/dL (12-16)
[2024-05-28 14:44] LABS: Basophils # 0.1 10^3/uL (0.0-0.1); Basophils % 1.2 %; Eosinophils # 0.3 10^3/uL (0.0-0.8); Hematocrit 43.8 % (36-47); Lymphocytes # 2.2 10^3/uL (0.8-4.8); Mean Corpuscular HGB Conc 33.6 g/dL (30-55); Mean Corpuscular Hemoglobin 29.9 pg (27-33); Mean Platelet Volume 11.3 fL (7.4-10.4); Monocytes # 0.5 10^3/uL (0.2-0.9); Monocytes % 5.9 %; Neutrophils # 5.38 10^3/uL (1.8-7.7); Neutrophils % 63.4 %; Nucleated Red Blood Cells % 0 %; Platelet Count 197 10^3/cmm (157-399); Red Blood Count 4.92 10^6/uL (3.85-5.65); Red Cell Distribution Width 12.7 % (12.1-15.1); White Blood Count 8.47 10^3/uL (3.29-11.43)
[2024-05-28 15:09] LABS: Lactic Sepsis W/Reflex 1.9 mmol/L (0.5-2.2); Troponin(5th) Baseline 9 ng/L (0-10)
[2024-05-28 15:17] LABS: Influenza A NEGATIVE (Negative); Influenza B NEGATIVE (Negative); Respiratory Syncytial Virus Ce NEGATIVE (Negative); SARS-CoV-2 PCR NEGATIVE (Negative)
[2024-05-28 15:18] LABS: Alanine Aminotransferase 35 U/L (0-33); Albumin Level 4.5 g/dL (3.5-5.2); Alkaline Phosphatase 167 U/L (35-105); Anion Gap 20.5 (5-19); Aspartate Amino Transferase 28 U/L (0-32); Blood Urea Nitrogen 9 mg/dL (6-20); C Reactive Protein 20.6 mg/L (0.0-4.9); Carbon Dioxide 23 mmol/L (22-29); Chloride 94 mmol/L (98-107); Creatinine Clr Calc Pharmacy 115.8222; Globulin 3.3 g/dL (1.3-4.6); Glucose 297 mg/dL (65-115); NT Pro B Type Natriuretic Pept 79 pg/mL (0-125); Osmolality Calculated 286 mOsm/kg (285-295); Potassium 4.5 mmol/L (3.5-5.1); Sodium 133 mmol/L (136-145); Total Bilirubin 0.5 mg/dL (0.15-1.2); Total Protein 7.8 g/dL (6.6-8.7)
--- NOTE | 2024-05-28 16:00 | ECG_ITS ---
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 Measurements Intervals [place] Rate: 97 P: 72 DE: 175 QRS: -13 QRSD: 86 T: 9 QT: 305 QTc: 388 Interpretive Statements SINUS RHYTHM LOW QRS VOLTAGE IN PRECORDIAL LEADS [QRS DEFLECTION < 1.0 mV IN CHEST LEADS] PATTERN CONSISTENT WITH PULMONARY DISEASE SEPTAL MYOCARDIAL INFARCTION , OF INDETERMINATE AGE [40+ ms Q WAVE IN V1/V2] Compared to ECG 05/28/2024 13:27:13 Myocardial infarct finding now present Sinus tachycardia no longer present Electronically Signed On 05-28-2024 20:29:58 FAMILY DEVELOPMENT SPECIALIST by Marty Bhardwaj M.D. [email or web address]
[2024-05-28 16:28] LABS: Troponin 5 2HR 9.44 ng/L (0-10); Troponin 5 2HR Delta 0.44 ABS# (0-10)
[2024-05-28 16:39] LABS: Glucose Point of Care 318 mg/dL (70-110)
[2024-05-28] MEDS: ondansetron 2 mg/ML SDV 2 mL 4 MG IVP ×2 (16:47→20:18)
[2024-05-28] MEDS: methylPREDNISolone sod succ 125 mg/2 mL INJ IVP (16:51)
[2024-05-28] MEDS: doxycycline 100 MG in sodium chloride 0.9% (plus) 100 ML IV (16:58)
[2024-05-28] MEDS: insulin regular-human 100 units/1 mL 10 UNIT IVP (16:59)
--- NOTE | 2024-05-28 17:41 | PM.HP ---
Providers/Chief Complaint Admitting Physician: Alejandro Patterson MD Primary Care Provider: Josephine Cary MD Chief Complaint: flue symptoms History of Present Illness Nasrin Gilmore is a 59 year old female past medical history of CAD status post stenting x 2, type 2 diabetes mellitus, history of smoking, history of perforated diverticulitis requiring prolonged intubation, shortness of breath, wheezing, chest pain. Patient reports that for the last few days she has been experiencing increasing shortness of breath, shortness of breath with exertion, nonproductive cough, wheezing, with anterior chest discomfort, she has had to use her nitroglycerin last night due to chest discomfort, no fevers, chills does report fatigue, malaise does report feeling unwell for the last few days, no calf pain, no calf swelling, no recent travel, no hemoptysis Review of Systems Const: Reports: fatigue and malaise; Denies: fever(s) or chills Card: Reports: chest pain Resp: Reports: dyspnea GI: Denies: abdominal pain Medications/Allergies Home Medications ?Medication ?Instructions ?Recorded ?Confirmed ?Last Taken ?Type aspirin 81 mg tablet,delayed 81 mg PO DAILY 05/13/20 05/28/24 05/28/24 07:00 History release atorvastatin 20 mg tablet 20 mg PO BEDTIME 05/13/20 05/28/24 05/27/24 History nitroglycerin 0.4 mg sublingual 0.4 mg sublingual Q5M PRN Chest 05/13/20 05/28/24 Unknown History tablet Pain hydrocodone 10 mg-acetaminophen 1 tab PO Q8H 12/15/21 05/28/24 05/27/24 21:00 History 325 mg tablet lisinopril 2.5 mg tablet 2.5 mg PO BID 12/15/21 05/28/24 05/28/24 History metformin 500 mg tablet,extended 500 mg PO QPM 12/15/21 05/28/24 05/27/24 19:00 History release 24 hr omeprazole 40 mg capsule,delayed 40 mg PO BEDTIME 12/15/21 05/28/24 05/27/24 19:00 History release fluticasone propionate 50 2 spray intranasal BID PRN 05/18/24 05/28/24 05/28/24 History mcg/actuation nasal allergies spray,suspension [id number]-[id number] 6.25 30 ml PO QPM 05/28/24 05/28/24 05/27/24 19:00 History mg-15 mg-325 mg/15 mL oral liquid (Night Time Cold and Flu Relief) Allergies Allergy/AdvReac Type Severity Reaction Status Date / Time STEROIDS Allergy Unknown Uncoded 05/28/24 13:24 PFSH Acute PFSH: Medical History Diabetes Hyperlipemia COPD (chronic obstructive pulmonary disease) Social History Smoking and tobacco/nicotine status: never used tobacco/nicotine Alcohol intake: never Substance/Drug Use: never Vitals/I&O/Wt Last Vital Signs Temp 98.6 F 05/28/24 13:17 Pulse 100 05/28/24 15:30 Resp 22 H 05/28/24 14:17 BP 129/77 05/28/24 15:30 Pulse Ox 91 05/28/24 15:30 O2 Del Method Nasal Cannula 05/28/24 15:30 O2 Flow Rate 1.5 05/28/24 15:30 Weight last 48 hrs Weight 95.254 kg Physical Exam Const: COMMON NORMALS: no acute distress and patient oriented x3 HENMT: COMMON NORMALS: normocephalic HEAD & SCALP: normocephalic Neck/C-Spine: COMMON NORMALS: no JVD Resp: COMMON NORMALS: normal respiratory effort, No retractions and No use of accessory muscles AUSCULTATION: crackles and wheezes Cardio: COMMON NORMALS: regular rate, regular rhythm, S1 normal heart sound present and S2 normal heart sound present RATE: regular rate RHYTHM: regular rhythm HEART SOUNDS: S1 normal heart sound present and S2 normal heart sound present GI: COMMON NORMALS: Normal to inspection, nondistended, normoactive bowel sounds present, Soft to palpation and non-tender Extremity: COMMON NORMALS: no pedal edema Neuro: COMMON NORMALS: patient oriented x3, CN's II-XII intact bilaterally and moves all extremities Psych: COMMON NORMALS: mental status grossly normal Data 05/28/24 14:17 05/28/24 14:17 Micro: Microbiology 05/28/24 14:30 Blood Culture - Preliminary Blood SPECIMEN COLLECTED 02/17/25 14:26 Blood Culture - Preliminary Blood SPECIMEN COLLECTED A&P Assessment and plan (1) Chest pain: (2) COPD with acute exacerbation: Plan COPD exacerbation with hypoxia requiring up to 1.5 L -Solu-Medrol 40 mg IV every 8 hours -DuoNeb -Budesonide -Doxycycline Chest pain -Serial EKGs, serial troponins, telemetry monitoring -Aspirin, statin -Cardiac echo Type 2 diabetes mellitus, moderate dose sliding scale PDMP PDMP Reviewed: Not Reviewed Attestations Medical Necessity Statement*: Patient requires hospitalization, inpatient, greater than 2 midnights for COPD exacerbation, chest pain Diagnoses Chest pain R07.9 COPD with acute exacerbation J44.1
[2024-05-28 18:00] LABS: Glucose Point of Care 270 mg/dL (70-110)
--- NOTE | 2024-05-28 18:59 | USCV_ITS ---
Mando Nasrin Age: 59 Gender: F : 1965 Exam Date: 05/28/2024 22:47 Ordering Phys: Alejandro Patterson MD Technologist: ANYI Exam Location: [facility] – [place] Indication: chest pain hx CAD, s/p cardiac stents, DM2, long- term smoker, continues smoking, SOP, wheezing, malaise BP: 144 / 74 HR: 85 Rhythm: Sinus Technical Quality: Adequate MEASUREMENTS (Male / Female) Normal Values 2D ECHO LV Diastolic Diameter PLAX 4.7 cm 4.2 - 5.9 / 3.9 - 5.3 cm IVS Diastolic Thickness 1.6 cm 0.6 - 1.0 / 0.6 - 0.9 cm IVS Systolic Thickness 2.3 cm LVPW Diastolic Thickness 1.9 cm 0.6 - 1.0 / 0.6 - 0.9 cm LVPW Systolic Thickness 2.1 cm LVOT Diameter 2.1 cm LV Ejection Fraction 2D Teich 61.1 % LV Ejection Fraction MOD 4C 57.4 % LV Ejection Fraction MOD 2C 58.4 % LV Ejection Fraction 2C AL 62.1 % LA Diameter 2.9 cm Aorta at Sinotubular Diameter 2.7 cm IVC Diameter 1.1 cm M-MODE LA Ao Ratio MM 1.0 AV Cusp Separation MM 2.2 cm DOPPLER AV Peak Velocity 122.0 cm/s LVOT Peak Velocity 90.0 cm/s AV Area Cont Eq vti 3.7 cm squared AV Area Cont Eq pk 2.6 cm squared MV Area PHT 3.2 cm squared Mitral E to A Ratio 0.8 TV Peak E Velocity 48.0 cm/s PV Peak Velocity 106.0 cm/s FINDINGS Left Ventricle Left ventricle is normal in size. LV systolic function is normal with EF of 60-65%. No regional wall motion abnormalities. Grade 1 diastolic dysfunction. Right Ventricle Normal in size and function Right Atrium Normal in size Left Atrium Normal in size Mitral Valve Mild mitral annular calcification. Trace mitral regurgitation Aortic Valve Grossly normal. No significant stenosis or regurgitation. Tricuspid Valve Not well visualized. Inadequate TR jet to calculate RVSP Pulmonic Valve Not well visualized Pericardium Normal Aorta Normal in size IVC Appears to be normal CONCLUSIONS LV systolic function is normal with EF of 60-65% Grade 1 diastolic dysfunction Trace mitral regurgitation No comparison studies are available. Madi Koroma MD (Electronically Signed) Final Date: 30 May 2024 14:19 S
--- NOTE | 2024-05-28 19:00 | PC.NURSE ---
Attempted to contact Hospitalist to notify pt is having 6/10 chest pain. Unable to reach hospitalist, regulatory product manager nurse notified. EKG done.
[2024-05-28 19:17] LABS: Glucose Point of Care 278 mg/dL (70-110)
[2024-05-28] MEDS: insulin lispro 100 unit/1 mL SUBCUT ×2 (19:25→21:48)
[2024-05-28] MEDS: enoxaparin 40 mg/0.4 mL Syringe SUBCUT (19:26)
[2024-05-28] MEDS: pantoprazole 40 mg SDV IVP (19:26)
[2024-05-28 19:49] LABS: Bilirubin Urine Negative (Negative); Blood Urine Negative (Negative); Glucose Urine UA 3+ (Normal); Ketones Urine Negative (Negative); Leukocyte Esterase Urine Negative (Negative); Nitrate Urine Negative (Negative); Protein Urine Trace (Negative); Urine Appearance Clear (CLEAR); Urine Color Yellow (Yellow); pH Urine 5.5 (5-7)
[2024-05-28 19:53] LABS: Cholesterol 229 mg/dL (0-200); HDL Cholesterol 29 mg/dL (60-100); NT Pro B Type Natriuretic Pept 75 pg/mL (0-125); Thyroid Stimulating Hormone 1.19 uIU/mL (0.27-4.20); Triglycerides 812 mg/dL (0-150)
[2024-05-28 19:54] LABS: Add Urine Microscopic? YES; Bacteria Urine None Seen /hpf; Hyaline Casts Urine 0.81 /lpf; RBC Urine 0-2 /hpf (0-2); Squamous Epithelial Cell Urine 0-5 /hpf (0-5); WBC Urine 0-5 /hpf (0-5)
--- NOTE | 2024-05-28 19:57 | ECG_ITS ---
[employer] Test Date: 2024-05-28 Pat Name: Nasrin Gilmore Department: Room: ED Gender: Female Embedded Software Architect: : 1965 Requested By: Kelsie Turcios Order Number: [id number] Maurilio MD: Marty Bhardwaj M.D. Measurements Intervals [place] Rate: 110 P: 73 WV: 174 QRS: -9 QRSD: 82 T: 32 QT: 300 QTc: 407 Interpretive Statements SINUS TACHYCARDIA ABNORMAL RHYTHM ECG Compared to ECG 05/28/2024 16:11:50 Sinus rhythm no longer present Myocardial infarct finding no longer present Electronically Signed On 05-28-2024 20:29:10 CONSERVATION SCIENTIST by Marty Bhardwaj M.D. [email or web address]
[2024-05-28 19:58] LABS: Add Urine Culture? No; Specific Gravity, Urine 1.031 (1.005-1.030)
[2024-05-28 20:16] LABS: D Dimer 0.32 ug/mLFEU (0-0.59)
[2024-05-28] MEDS: morphine 4 mg/mL SDV 1 mL 2 MG IVP (20:16)
[2024-05-28 20:17] LABS: Estmated Average Glucose 243; Hemoglobin A1C 10.1 % (4.0-6.0)
[2024-05-28] MEDS: lidocaine 2% viscous 15 ML, aluminum-mag hydrox-simethicon 30 ML, sucralfate oral liq 1 GM PO (20:18)
[2024-05-28] MEDS: atorvastatin 40 mg Tablet 20 MG PO (20:19)
[2024-05-28 20:29] LABS: Troponin 5 6HR 9.27 ng/L (0-10); Troponin 5 6HR Delta 0.27 ng/L (0-12)
[2024-05-28 20:38] LABS: LDL Cholesterol Direct 91 mg/dL (0-100)
[2024-05-28 21:42] LABS: Glucose Point of Care 254 mg/dL (70-110)
[2024-05-28] MEDS: budesonide 0.5 mg/2 mL Neb INHALATION (22:00)
[2024-05-29] VITALS (11 sets, daily range): BP systolic 96–154; BP diastolic 53–88; PULSE 71–104; RESP 18–24; TEMP 36.7–36.9; O2SAT 91–96; BMI 36.0
[2024-05-29] MEDS: ondansetron 2 mg/ML SDV 2 mL 4 MG IVP ×3 (00:30→21:45)
[2024-05-29] MEDS: ipratropium-albuterol 3 mL Neb INHALATION ×3 (01:02→08:27)
[2024-05-29 04:57] LABS: Basophils # 0.1 10^3/uL (0.0-0.1); Basophils % 0.7 %; Eosinophils # 0.1 10^3/uL (0.0-0.8); Eosinophils % 0.6 %; Hematocrit 38.3 % (36-47); Lymphocytes # 2.5 10^3/uL (0.8-4.8); Lymphocytes % 30.8 %; Mean Corpuscular HGB Conc 33.2 g/dL (30-55); Mean Corpuscular Hemoglobin 30.4 pg (27-33); Mean Corpuscular Volume 91.6 fl (85-98); Mean Platelet Volume 10.6 fL (7.4-10.4); Monocytes # 0.5 10^3/uL (0.2-0.9); Monocytes % 6.2 %; Neutrophils # 5.06 10^3/uL (1.8-7.7); Neutrophils % 61.3 %; Nucleated Red Blood Cells % 0 %; Platelet Count 161 10^3/cmm (157-399); Red Blood Count 4.18 10^6/uL (3.85-5.65); White Blood Count 8.25 10^3/uL (3.29-11.43)
[2024-05-29 05:20] LABS: Alanine Aminotransferase 26 U/L (0-33); Albumin Level 3.8 g/dL (3.5-5.2); Alkaline Phosphatase 126 U/L (35-105); Aspartate Amino Transferase 24 U/L (0-32); Blood Urea Nitrogen 11 mg/dL (6-20); Calcium 9.3 mg/dL (8.5-10.5); Carbon Dioxide 25 mmol/L (22-29); Chloride 93 mmol/L (98-107); Creatinine Clr Calc Pharmacy 98.4637; Globulin 3.1 g/dL (1.3-4.6); Glomerular Filtration Rate 86.2 mL/min (90-130); Glucose 283 mg/dL (65-115); Magnesium 1.5 mg/dL (1.7-2.3); Osmolality Calculated 280 mOsm/kg (285-295); Phosphorus 3.4 mg/dL (2.5-4.5); Sodium 130 mmol/L (136-145); Total Bilirubin 0.4 mg/dL (0.15-1.2); Total Protein 6.9 g/dL (6.6-8.7)
[2024-05-29] MEDS: HYDROcodone-acetaminophen 10-325 mg Tablet 1 TAB PO ×2 (05:48→21:44)
[2024-05-29 06:22] LABS: Glucose Point of Care 323 mg/dL (70-110)
[2024-05-29] MEDS: budesonide 0.5 mg/2 mL Neb INHALATION ×2 (08:27→20:45)
[2024-05-29] MEDS: insulin lispro 100 unit/1 mL SUBCUT ×4 (09:06→21:46)
[2024-05-29] MEDS: metoclopramide 5 mg/mL SDV 2 mL IVP (09:09)
--- NOTE | 2024-05-29 09:36 | PC.CHAP ---
Pastoral Care Encounter/Spiritual Assessment Type of Contact [] Declined bpm analyst visit [] Patient/Family/Request visit [] Outpatient visit [] Follow-up visit [] Physician referral [] Code/Alert [x] Routine visit [] Staff referral [] Actively dying [] Patient sleeping [] Family support [] [] Out of room [] Palliative care [] [] Receiving care in room [] Pre-surgical visit [] Trauma [] Long length of stay [] ICU visit [] Other: Relational/Emotional Strength [x] Patient feels connected with others/family/visitors/staff [] Distress [] Loneliness/isolation [] Abandonment Spirituality of Patient [x] Person of Olga Lidia [] Attends Latter-Day of their Olga Lidia [x] Believes in Prayer [] Reads Bible or Sikh materials [] There are Spiritual issues to be addressed Electrical Panel Builder Interventions [x] Prayer [x] Active listening [x] Non-anxious presence [x] Spiritual/emotional support [] Crisis/trauma care [] Spiritual counseling [] Bereavement support [] Provided bereavement packet [] Provided Bible/devotional materials [] Provided toy/stuffed animal, coloring book to patient or family member [] Provided Communion [] Anointing/[place] [] Salvation [x] Completed spiritual assessment [] Other: Impact on Illness or Injury [] Angry [] Fearful [] Anxious [] Often cries [] Exhaustion [] Unable to work [] Unable to attend quaker [] Unable to walk/stand [] Unable to read [] Unable to drive [] Unable to eat/drink [] Unable to sleep [] Unable to be with family [] Patient intubated [] Other: Summary Time spent with patient 5 min
[2024-05-29] MEDS: aspirin 81 mg EC Tablet PO (10:35)
[2024-05-29] MEDS: doxycycline 100 mg Tablet PO ×2 (10:35→18:37)
[2024-05-29] MEDS: insulin glargine 100 units/1 mL 10 UNIT SUBCUT (10:36)
[2024-05-29 11:14] LABS: Glucose Point of Care 266 mg/dL (70-110)
--- NOTE | 2024-05-29 16:05 | P.PN_ITS ---
Subjective 2 Subjective: Patient was seen this morning, she tells me she does not plan to take IV Solu- Medrol or steroids as they do not make her feel well, but is agreeable to try p.o. steroid she is worried about her blood sugars, we discussed her A1c of 10.1, also discussed her hypertriglyceridemia, discussed diet control measures, starting on fenofibrate, she is agreeable, still complaining of shortness of breath and wheezing Vitals/I&O/Wt Last Vital Signs Temp 98.1 F 05/29/24 11:23 Pulse 77 05/29/24 11:23 Resp 18 05/29/24 11:23 BP 124/88 05/29/24 11:23 Pulse Ox 92 05/29/24 11:23 O2 Del Method Nasal Cannula 05/29/24 11:23 O2 Flow Rate 4 05/29/24 05:09 05/29/24 05/29/24 05/29/24 06:59 14:59 22:59 Intake Total 120 / 320 960 / 960 Balance 120 / 320 960 / 960 Weight last 48 hrs Weight 93.803 kg Weight 95.254 kg Weight 95.254 kg Physical Exam 2 Const: COMMON NORMALS: no acute distress and patient oriented x3 Resp: COMMON NORMALS: normal respiratory effort, No retractions and No use of accessory muscles AUSCULTATION: wheezes Cardio: COMMON NORMALS: regular rate, regular rhythm, S1 normal heart sound present and S2 normal heart sound present RATE: regular rate RHYTHM: r egular rhythm HEART SOUNDS: S1 normal heart sound present and S2 normal heart sound present GI: COMMON NORMALS: Normal to inspection, nondistended, normoactive bowel sounds present and non-tender Extremity: COMMON NORMALS: no pedal edema Neuro: COMMON NORMALS: patient oriented x3 Psych: COMMON NORMALS: mental status grossly normal Data 05/29/24 04:37 05/29/24 04:37 Micro: Microbiology 05/28/24 14:26 Blood Culture - Preliminary Blood NEGATIVE TO DATE 05/28/24 14:30 Blood Culture - Preliminary Blood NEGATIVE TO DATE A&P Assessment and plan (1) Chest pain: (2) COPD with acute exacerbation: Plan COPD exacerbation with hypoxia requiring up to 1.5 L -Switch to prednisone 40 mg daily -DuoNeb -Budesonide -Doxycycline Chest pain -Serial EKGs, serial troponins, telemetry monitoring -Aspirin, statin -Cardiac echo Type 2 diabetes mellitus, moderate dose sliding scale Hypertriglyceridemia, fenofibrate PDMP PDMP Reviewed: Not Reviewed Attestations 2 Medical Necessity Statement*: Patient requires hospitalization for COPD exacerbation, chest pain Diagnoses Chest pain R07.9 COPD with acute exacerbation J44.1
[2024-05-29 16:40] LABS: Glucose Point of Care 317 mg/dL (70-110)
[2024-05-29] MEDS: albuterol 2.5 mg/3 mL Neb INHALATION (20:45)
[2024-05-29 20:50] LABS: Glucose Point of Care 225 mg/dL (70-110)
[2024-05-29] MEDS: atorvastatin 40 mg Tablet 20 MG PO (21:45)
[2024-05-29] MEDS: pantoprazole 40 mg SDV IVP (21:45)
[2024-05-29] MEDS: enoxaparin 40 mg/0.4 mL Syringe SUBCUT (21:46)
[2024-05-30] VITALS (10 sets, daily range): BP systolic 112–146; BP diastolic 50–74; PULSE 55–89; RESP 18–24; TEMP 36.4–36.8; O2SAT 92–98
[2024-05-30] MEDS: albuterol 2.5 mg/3 mL Neb INHALATION (03:04)
[2024-05-30 05:22] LABS: Basophils # 0.1 10^3/uL (0.0-0.1); Eosinophils # 0.3 10^3/uL (0.0-0.8); Eosinophils % 3.4 %; Hematocrit 37.1 % (36-47); Lymphocytes # 4.2 10^3/uL (0.8-4.8); Lymphocytes % 47.4 %; Mean Corpuscular HGB Conc 32.9 g/dL (30-55); Mean Corpuscular Hemoglobin 29.8 pg (27-33); Mean Corpuscular Volume 90.7 fl (85-98); Mean Platelet Volume 10.9 fL (7.4-10.4); Monocytes # 0.6 10^3/uL (0.2-0.9); Monocytes % 6.2 %; Neutrophils # 3.71 10^3/uL (1.8-7.7); Neutrophils % 41.6 %; Nucleated Red Blood Cells % 0 %; Platelet Count 164 10^3/cmm (157-399); Red Blood Count 4.09 10^6/uL (3.85-5.65); White Blood Count 8.92 10^3/uL (3.29-11.43)
[2024-05-30 05:52] LABS: Alanine Aminotransferase 25 U/L (0-33); Albumin Level 3.8 g/dL (3.5-5.2); Alkaline Phosphatase 127 U/L (35-105); Anion Gap 16.2 (5-19); Aspartate Amino Transferase 27 U/L (0-32); Blood Urea Nitrogen 13 mg/dL (6-20); Calcium 9.5 mg/dL (8.5-10.5); Carbon Dioxide 28 mmol/L (22-29); Chloride 93 mmol/L (98-107); Creatinine Clr Calc Pharmacy 99.7588; Glomerular Filtration Rate 86.2 mL/min (90-130); Glucose 195 mg/dL (65-115); Magnesium 1.7 mg/dL (1.7-2.3); Osmolality Calculated 281 mOsm/kg (285-295); Potassium 4.2 mmol/L (3.5-5.1); Sodium 133 mmol/L (136-145); Total Bilirubin 0.4 mg/dL (0.15-1.2); Total Protein 6.8 g/dL (6.6-8.7)
[2024-05-30 06:27] LABS: Glucose Point of Care 217 mg/dL (70-110)
[2024-05-30] MEDS: ipratropium-albuterol 3 mL Neb INHALATION ×3 (09:12→20:52)
[2024-05-30] MEDS: budesonide 0.5 mg/2 mL Neb INHALATION ×2 (09:12→20:52)
[2024-05-30] MEDS: doxycycline 100 mg Tablet PO (09:53)
[2024-05-30] MEDS: ondansetron 2 mg/ML SDV 2 mL 4 MG IVP (09:53)
[2024-05-30] MEDS: aspirin 81 mg EC Tablet PO (09:53)
[2024-05-30] MEDS: predniSONE 20 mg Tablet 40 MG PO (09:53)
[2024-05-30] MEDS: insulin lispro 100 unit/1 mL SUBCUT ×4 (09:53→20:28)
[2024-05-30] MEDS: fenofibrate 145 mg Tablet PO (09:53)
--- NOTE | 2024-05-30 10:57 | CTR_ITS ---
PROCEDURE INFORMATION: Exam: CTA Chest With Contrast Exam date and time: 05/30/2024 5:01 PM Age: 59 years old Clinical indication: Shortness of breath; Prior surgery; Surgery date: 6+ months; Surgery type: Stent placement x9 yrs ago TECHNIQUE: Imaging protocol: Computed tomographic angiography of the chest with contrast. Exam focused on the arteries. 3D rendering (Not supervised by radiologist): MIP and/or 3D reconstructed images were created by the technologist. Radiation optimization: All CT scans at this facility use at least one of these dose optimization techniques: automated exposure control; mA and/or kV adjustment per patient size (includes targeted exams where dose is matched to clinical indication); or iterative reconstruction. Contrast material: OMNIPAQUE 350; Contrast volume: 100 ml; Contrast route: INTRAVENOUS (IV); COMPARISON: CT angio chest w abd pel w con 07/01/2022 1:24 AM RADIATION DOSE METRICS: Total DLP (mGy-cm): 482.32 FINDINGS: Pulmonary arteries: The main pulmonary artery is mildly enlarged measuring 3.6 cm diameter compared to the 3.5 cm ascending aorta. The pulmonary arteries are adequately opacified for evaluation to the subsegmental level. There is no filling defect to suggest embolism. Aorta: There is mild aortic atherosclerotic disease. Lungs: Mild centrilobular emphysema. There is mild bilateral anterior upper lung predominant coarse reticular and platelike opacity suggesting scarring or atelectasis, mildly progressive since 07/01/2022. There is mild diffuse bilateral fine reticular opacity without a distinct subpleural predominant. No traction bronchiectasis. Pleural spaces: There is no pleural effusion or pneumothorax. Heart: Heart size is normal. There is no pericardial effusion. Coronary arteries: There is severe coronary artery calcification. Lymph nodes: There is no mediastinal or hilar lymphadenopathy. Liver: The liver is moderately enlarged. There is diffuse low-attenuation of the liver relative to the spleen consistent with fatty infiltration. Bones/joints: Bones are unremarkable. Soft tissues: The extrathoracic soft tissues are unremarkable. CT/CT angio chest PE protcl [id number] IMPRESSION: 1. No pulmonary embolism. 2. Mildly enlarged central pulmonary artery. Possible pulmonary hypertension. 3. Mild diffuse nonspecific interstitial lung disease (possible NSIP or hypersensitivity pneumonitis). Mild scarring/atelectasis in the anterior upper lungs progressive but the findings are otherwise stable since 07/01/2022. 4. Hepatomegaly and steatosis. COMMENTS: The presence of pulmonary emphysema on CT is an independent risk factor for lung cancer. In the absence of a history or active diagnosis of lung cancer, it is recommended that this patient with emphysema be evaluated for enrollment in a low dose CT lung cancer screening program.
[2024-05-30 11:39] LABS: Glucose Point of Care 329 mg/dL (70-110)
[2024-05-30] MEDS: HYDROcodone-acetaminophen 10-325 mg Tablet 1 TAB PO ×2 (12:04→20:37)
[2024-05-30] MEDS: AZITHROMYCIN ADD-Vantage 500 MG in 0.9% NaCl ADD-Vantage 250 ML 250 MG IV (12:05)
[2024-05-30] MEDS: cefTRIAXone 1,000 mg SDV 1000 MG IVP (12:05)
[2024-05-30] MEDS: insulin glargine 100 units/1 mL 15 UNIT SUBCUT (12:05)
[2024-05-30 12:33] LABS: Glucose Point of Care 285 mg/dL (70-110)
[2024-05-30 16:50] LABS: Glucose Point of Care 394 mg/dL (70-110)
--- NOTE | 2024-05-30 17:04 | P.PN_ITS ---
Subjective 2 Subjective: Patient was seen this morning, continues to complain of cough, persistent wheezing, shortness of breath intermittent chest discomfort, more pressure-like pain, no nausea, no vomiting, no diaphoresis Vitals/I&O/Wt Last Vital Signs Temp 98.1 F 05/30/24 12:00 Pulse 78 05/30/24 13:44 Resp 20 H 05/30/24 13:44 BP 122/67 05/30/24 12:00 Pulse Ox 97 05/30/24 13:44 O2 Del Method Nasal Cannula 05/30/24 13:44 O2 Flow Rate 2 05/30/24 13:44 05/30/24 05/30/24 05/30/24 06:59 14:59 22:59 Intake Total 600 / 2000 490 / 490 Balance 600 / 2000 490 / 490 Weight last 48 hrs Weight 96.116 kg Weight 93.803 kg Weight 95.254 kg Physical Exam 2 Const: COMMON NORMALS: no acute distress and patient oriented x3 Resp: COMMON NORMALS: normal respiratory effort, No retractions and No use of accessory muscles AUSCULTATION: crackles and wheezes Cardio: COMMON NORMALS: regular rate, regular rhythm, S1 normal heart sound present and S2 normal heart sound present RATE: regular rate RHYTHM: r egular rhythm HEART SOUNDS: S1 normal heart sound present and S2 normal heart sound present GI: COMMON NORMALS: Normal to inspection, nondistended, normoactive bowel sounds present and non-tender Extremity: COMMON NORMALS: no pedal edema Neuro: COMMON NORMALS: patient oriented x3 Psych: COMMON NORMALS: mental status grossly normal Data 05/30/24 04:44 05/30/24 04:44 Micro: Microbiology 05/28/24 14:26 Blood Culture - Preliminary Blood NEGATIVE TO DATE 05/28/24 14:30 Blood Culture - Preliminary Blood NEGATIVE TO DATE A&P Assessment and plan (1) Chest pain: (2) COPD with acute exacerbation: Plan COPD exacerbation with hypoxia requiring up to 1.5 L -Switch to prednisone 40 mg daily -DuoNeb -Budesonide -Will order CT angiogram of the chest ? Broaden antibiotic coverage to Rocephin and azithromycin Chest pain -Serial EKGs, serial troponins, telemetry monitoring -Aspirin, statin -Cardiac echo CONCLUSIONS LV systolic function is normal with EF of 60-65% Grade 1 diastolic dysfunction Trace mitral regurgitation No comparison studies are available. Type 2 diabetes mellitus, moderate dose sliding scale Hypertriglyceridemia, fenofibrate Patient has persistent shortness of breath, requiring further antibiotic therapy CT of the chest PDMP PDMP Reviewed: Not Reviewed Attestations 2 Medical Necessity Statement*: Patient requires hospitalization for acute respiratory failure, COPD exacerbation concerns for pneumonia broaden antibiotic coverage, CT angio of the chest Diagnoses Chest pain R07.9 COPD with acute exacerbation J44.1
[2024-05-30] MEDS: iohexol 350 mg/mL 500 mL Btl (per mL) IV (17:05)
[2024-05-30] MEDS: enoxaparin 40 mg/0.4 mL Syringe SUBCUT (18:44)
[2024-05-30] MEDS: pantoprazole 40 mg SDV IVP (18:44)
[2024-05-30 20:19] LABS: Glucose Point of Care 335 mg/dL (70-110)
[2024-05-30] MEDS: atorvastatin 40 mg Tablet 20 MG PO (20:28)
[2024-05-30] MEDS: metoclopramide 5 mg/mL SDV 2 mL IVP (20:32)
[2024-05-31] VITALS (12 sets, daily range): BP systolic 110–183; BP diastolic 65–102; PULSE 62–91; RESP 17–22; TEMP 36.6–36.7; O2SAT 91–98
[2024-05-31] MEDS: ipratropium-albuterol 3 mL Neb INHALATION ×4 (02:51→21:27)
[2024-05-31 06:21] LABS: Glucose Point of Care 224 mg/dL (70-110)
[2024-05-31 06:37] LABS: Basophils # 0.1 10^3/uL (0.0-0.1); Basophils % 0.8 %; Eosinophils # 0.1 10^3/uL (0.0-0.8); Hematocrit 37.4 % (36-47); Lymphocytes # 4.3 10^3/uL (0.8-4.8); Lymphocytes % 41.5 %; Mean Corpuscular HGB Conc 33.2 g/dL (30-55); Mean Corpuscular Hemoglobin 30.5 pg (27-33); Mean Corpuscular Volume 92.1 fl (85-98); Mean Platelet Volume 10.8 fL (7.4-10.4); Monocytes # 0.6 10^3/uL (0.2-0.9); Monocytes % 5.5 %; Neutrophils # 5.21 10^3/uL (1.8-7.7); Neutrophils % 50.7 %; Nucleated Red Blood Cells % 0 %; Platelet Count 183 10^3/cmm (157-399); Red Blood Count 4.06 10^6/uL (3.85-5.65); Red Cell Distribution Width 12.8 % (12.1-15.1); White Blood Count 10.26 10^3/uL (3.29-11.43)
[2024-05-31 06:53] LABS: Alanine Aminotransferase 27 U/L (0-33); Albumin Level 3.7 g/dL (3.5-5.2); Alkaline Phosphatase 113 U/L (35-105); Anion Gap 16.6 (5-19); Aspartate Amino Transferase 26 U/L (0-32); Blood Urea Nitrogen 13 mg/dL (6-20); Calcium 9.4 mg/dL (8.5-10.5); Carbon Dioxide 26 mmol/L (22-29); Chloride 95 mmol/L (98-107); Creatinine Clr Calc Pharmacy 116.3265; Globulin 3.1 g/dL (1.3-4.6); Glucose 206 mg/dL (65-115); Magnesium 1.8 mg/dL (1.7-2.3); Osmolality Calculated 284 mOsm/kg (285-295); Phosphorus 3.9 mg/dL (2.5-4.5); Potassium 3.6 mmol/L (3.5-5.1); Sodium 134 mmol/L (136-145); Total Bilirubin 0.3 mg/dL (0.15-1.2); Total Protein 6.8 g/dL (6.6-8.7)
[2024-05-31 07:01] LABS: NT Pro B Type Natriuretic Pept 203 pg/mL (0-125)
[2024-05-31] MEDS: budesonide 0.5 mg/2 mL Neb INHALATION ×2 (07:54→21:27)
[2024-05-31] MEDS: predniSONE 20 mg Tablet 40 MG PO (08:47)
[2024-05-31] MEDS: aspirin 81 mg EC Tablet PO (08:47)
[2024-05-31] MEDS: fenofibrate 145 mg Tablet PO (08:47)
[2024-05-31] MEDS: insulin lispro 100 unit/1 mL SUBCUT ×4 (08:48→20:55)
[2024-05-31] MEDS: insulin glargine 100 units/1 mL 15 UNIT SUBCUT (09:36)
[2024-05-31 11:03] LABS: Glucose Point of Care 240 mg/dL (70-110)
[2024-05-31] MEDS: cefTRIAXone 1,000 mg SDV 1000 MG IVP (11:48)
[2024-05-31] MEDS: metoclopramide 5 mg/mL SDV 2 mL IVP ×2 (12:00→23:26)
[2024-05-31] MEDS: AZITHROMYCIN ADD-Vantage 500 MG in 0.9% NaCl ADD-Vantage 250 ML 250 MG IV (12:28)
--- NOTE | 2024-05-31 15:27 | P.PN_ITS ---
Subjective 2 Subjective: Patient was seen this morning, continues to complain shortness of breath, cough, fatigue, malaise was, active wheezing on examination Vitals/I&O/Wt Last Vital Signs Temp 98.0 F 05/31/24 11:16 Pulse 84 05/31/24 14:16 Resp 20 H 05/31/24 14:16 BP 117/67 05/31/24 11:16 Pulse Ox 96 05/31/24 14:16 O2 Del Method Nasal Cannula 05/31/24 14:16 O2 Flow Rate 2 05/31/24 14:16 05/31/24 05/31/24 05/31/24 06:59 14:59 22:59 Intake Total 500 / 1110 480 / 480 Balance 500 / 1110 480 / 480 Weight last 48 hrs Weight 96.026 kg Weight 96.116 kg Physical Exam 2 Const: COMMON NORMALS: no acute distress and patient oriented x3 Resp: COMMON NORMALS: normal respiratory effort and No retractions A USCULTATION: crackles and wheezes Cardio: COMMON NORMALS: regular rate, regular rhythm, S1 normal heart sound present and S2 normal heart sound present RATE: regular rate RHYTHM: r egular rhythm HEART SOUNDS: S1 normal heart sound present and S2 normal heart sound present GI: COMMON NORMALS: Normal to inspection, nondistended, normoactive bowel sounds present and non-tender Extremity: COMMON NORMALS: no pedal edema Neuro: COMMON NORMALS: patient oriented x3 Psych: COMMON NORMALS: mental status grossly normal Data 05/31/24 06:13 05/31/24 06:13 A&P Assessment and plan (1) Chest pain: (2) COPD with acute exacerbation: Plan COPD exacerbation with hypoxia requiring up to 2 L -Switch to prednisone 40 mg daily -DuoNeb -Budesonide - CT/CT angio chest PE protcl [id number] IMPRESSION: 1. No pulmonary embolism. 2. Mildly enlarged central pulmonary artery. Possible pulmonary hypertension. 3. Mild diffuse nonspecific interstitial lung disease (possible NSIP or hypersensitivity pneumonitis). Mild scarring/atelectasis in the anterior upper lungs progressive but the findings are otherwise stable since 07/01/2022. 4. Hepatomegaly and steatosis. ? Broaden antibiotic coverage to Rocephin and azithromycin Chest pain -Serial EKGs, serial troponins, telemetry monitoring -Aspirin, statin -Cardiac echo CONCLUSIONS LV systolic function is normal with EF of 60-65% Grade 1 diastolic dysfunction Trace mitral regurgitation No comparison studies are available. Type 2 diabetes mellitus, moderate dose sliding scale Hypertriglyceridemia, fenofibrate PDMP PDMP Reviewed: Not Reviewed Attestations 2 Medical Necessity Statement*: Patient requires hospitalization for COPD exacerbation Diagnoses Chest pain R07.9 COPD with acute exacerbation J44.1
[2024-05-31 16:09] LABS: Glucose Point of Care 294 mg/dL (70-110)
[2024-05-31] MEDS: pantoprazole 40 mg SDV IVP (18:36)
[2024-05-31] MEDS: enoxaparin 40 mg/0.4 mL Syringe SUBCUT (18:36)
[2024-05-31 20:40] LABS: Glucose Point of Care 303 mg/dL (70-110)
[2024-05-31] MEDS: atorvastatin 40 mg Tablet 20 MG PO (20:55)
[2024-05-31] MEDS: HYDROcodone-acetaminophen 10-325 mg Tablet 1 TAB PO (23:26)
[2024-06-01] VITALS (9 sets, daily range): BP systolic 103–128; BP diastolic 66–76; PULSE 61–83; RESP 16–19; TEMP 36.5–36.8; O2SAT 90–98
[2024-06-01] MEDS: ipratropium-albuterol 3 mL Neb INHALATION ×3 (02:47→13:48)
[2024-06-01 04:49] LABS: Basophils # 0.1 10^3/uL (0.0-0.1); Basophils % 0.6 %; Eosinophils # 0.3 10^3/uL (0.0-0.8); Eosinophils % 3.5 %; Hematocrit 35.5 % (36-47); Lymphocytes # 4.4 10^3/uL (0.8-4.8); Lymphocytes % 49.3 %; Mean Corpuscular HGB Conc 32.7 g/dL (30-55); Mean Corpuscular Hemoglobin 29.9 pg (27-33); Mean Corpuscular Volume 91.5 fl (85-98); Mean Platelet Volume 10.4 fL (7.4-10.4); Monocytes # 0.5 10^3/uL (0.2-0.9); Monocytes % 5.5 %; Neutrophils # 3.65 10^3/uL (1.8-7.7); Neutrophils % 40.8 %; Nucleated Red Blood Cells % 0 %; Platelet Count 175 10^3/cmm (157-399); Red Blood Count 3.88 10^6/uL (3.85-5.65); White Blood Count 8.94 10^3/uL (3.29-11.43)
[2024-06-01 05:30] LABS: Anion Gap 15.4 (5-19); Blood Urea Nitrogen 15 mg/dL (6-20); Calcium 9.3 mg/dL (8.5-10.5); Carbon Dioxide 26 mmol/L (22-29); Chloride 97 mmol/L (98-107); Creatinine Clr Calc Pharmacy 99.3271; Glomerular Filtration Rate 86.2 mL/min (90-130); Glucose 175 mg/dL (65-115); NT Pro B Type Natriuretic Pept 124 pg/mL (0-125); Osmolality Calculated 285 mOsm/kg (285-295); Potassium 3.4 mmol/L (3.5-5.1); Sodium 135 mmol/L (136-145)
[2024-06-01 06:18] LABS: Glucose Point of Care 199 mg/dL (70-110)
[2024-06-01] MEDS: budesonide 0.5 mg/2 mL Neb INHALATION (08:42)
[2024-06-01] MEDS: potassium chloride ER 20 mEq Tablet 40 MEQ PO (09:33)
[2024-06-01] MEDS: insulin glargine 100 units/1 mL 15 UNIT SUBCUT (09:34)
[2024-06-01] MEDS: insulin lispro 100 unit/1 mL SUBCUT ×2 (09:34→12:27)
[2024-06-01] MEDS: predniSONE 20 mg Tablet 40 MG PO (09:34)
[2024-06-01] MEDS: lisinopril 2.5 mg Tablet PO (09:34)
[2024-06-01] MEDS: aspirin 81 mg EC Tablet PO (09:34)
[2024-06-01] MEDS: fenofibrate 145 mg Tablet PO (09:35)
[2024-06-01 11:11] LABS: Glucose Point of Care 251 mg/dL (70-110)
[2024-06-01] MEDS: AZITHROMYCIN ADD-Vantage 500 MG in 0.9% NaCl ADD-Vantage 250 ML 250 MG IV (11:39)
[2024-06-01] MEDS: cefTRIAXone 1,000 mg SDV 1000 MG IVP (11:39)
--- NOTE | 2024-06-01 11:53 | P.DS_ITS ---
Discharge Providers Date of Admission: 05/28/24 16:25 Date of Discharge: June 01, 2024 Attending Provider at Admission: Alejandro Patterson MD Attending Provider at Discharge: Alejandro Patterson MD Primary Care Provider: Josephine Cary MD Diagnoses at Discharge Discharge Diagnosis (1) Chest pain: Status: Inactive (2) COPD with acute exacerbation: Status: Acute Reason for Visit Reason for Visit: flue symptoms Hospital Course Hospital Course Nasrin Gilmore is a 59 year old female past medical history of CAD status post stenting x 2, type 2 diabetes mellitus, history of smoking, history of perforated diverticulitis requiring prolonged intubation, shortness of breath, wheezing, chest pain. Patient reports that for the last few days she has been experiencing increasing shortness of breath, shortness of breath with exertion, nonproductive cough, wheezing, with anterior chest discomfort, she has had to use her nitroglycerin last night due to chest discomfort, no fevers, chills does report fatigue, malaise does report feeling unwell for the last few days, no calf pain, no calf swelling, no recent travel, no hemoptysis Patient was admitted to [facility] for COPD exacerbation with concerns for underlying pneumonia due to persistent wheezing and shortness of breath manage with steroid therapy, antibiotic therapy was added, patient has slow clinical progress however she remains afebrile, shortness of breath is improved she continues to have some degree of wheezing on discharge. Will discharge her on Augmentin, a prednisone taper, albuterol, Advair, with close follow-up with primary care provider as outpatient Patient CT of the chest shows mild diffuse nonspecific interstitial lung disease, mild scarring/atelectasis in the anterior upper lobe lungs progressive, will have patient follow-up with pulmonary [facility] in [place]. For her chest pain, no recurrent episodes of chest pain on discharge, echocardiogram shows a EF of 60 to 65%, she will be discharged with close follow-up with cardiology as outpatient. Patient was advised if she were to have any recurrent chest pain to go to emergency room For her hypertriglyceridemia, discharged with fenofibrate follow-up with primary care provider to recheck lipid panel in 6 weeks For type 2 diabetes, hemoglobin A1c 10.1, discharged with NovoLog, Lantus, with a close follow-up with primary care provider as outpatient -Please monitor your blood sugars closely -Monitor your blood sugars 3 times daily as after meals -Please record your blood sugars, and a blood sugar log -For your NovoLog -Please inject blood sugar after meals based on sliding scale provided -Do not inject insulin if you do not eat as hypoglycemia kills -This is a NovoLog sliding scale -Insulin sliding ?fingerstick? Insulin ?141-180?0 units/sq 181-220?2 units/sq ?221-260?4 units/sq ?261-300 6 units/sq ?301-350?8 units/sq ?351-400 10 units/sq ?401-450?12 units/sq >450? 14units/sq -If your blood sugar is greater than 500 go to the emergency room -If your blood sugar is less than 60 or at anytime you feel lightheaded or dizzy or diaphoretic or have chest palpitations check your blood sugar, and eat a hard candy or drink orange juice and go immediately to the emergency room -Remember hypoglycemia kills, so if his blood sugar is less than 60 we have to increase it by taking in a sugary meal such as a hard candy or orange juice and go to the emergency room -If you have any questions please call us where here to help -Please stop smoking -Please take antibiotics and steroid as prescribed -Please take inhalers as prescribed -Please follow-up with pulmonary in 1 week -Please follow-up with cardiology in 1 week -If you have recurrent chest pain please go to the emergency room Physical Exam Const: COMMON NORMALS: no acute distress and patient oriented x3 Resp: COMMON NORMALS: normal respiratory effort, No retractions and No use of accessory muscles AUSCULTATION: wheezes Cardio: COMMON NORMALS: regular rate, regular rhythm, S1 normal heart sound present and S2 normal heart sound present RATE: regular rate RHYTHM: regular rhythm HEART SOUNDS: S1 normal heart sound present and S2 normal heart sound present GI: COMMON NORMALS: Normal to inspection, nondistended, normoactive bowel sounds present Extremity: COMMON NORMALS: no pedal edema Neuro: COMMON NORMALS: patient oriented x3 Psych: COMMON NORMALS: mental status grossly normal Discharge Data Studies Completed and Pending Completed Studies During Hospitalization Category Date Time Status CT angio chest PE protcl [id number] Routine Cat Scan 05/30/24 10:57 Completed XR chest 1V portable [id number] Stat Exams 05/28/24 13:58 Completed CV. echo complete* [id number] Routine Ultrasound 05/28/24 18:59 Completed Pending at discharge Category Date Time Status Basic Metabolic Panel AM LABS Lab 06/02/24 04:00 Ordered Basic Metabolic Panel AM LABS Lab 06/03/24 04:00 Ordered Blood Culture Stat Lab 05/28/24 14:30 Results Complete Blood Count w/Auto AM LABS Lab 06/02/24 04:00 Ordered Complete Blood Count w/Auto AM LABS Lab 06/03/24 04:00 Ordered NT Pro B Type Natriuretic Pept QAM Lab 06/02/24 06:00 Ordered Radiology Impressions Chest X-Ray 05/28/24 13:58 IMPRESSION: 1. No acute cardiopulmonary process. 2. . Incidental/nonacute findings are listed in the report. Chest CTA 05/30/24 10:57 IMPRESSION: 1. No pulmonary embolism. 2. Mildly enlarged central pulmonary artery. Possible pulmonary hypertension. 3. Mild diffuse nonspecific interstitial lung disease (possible NSIP or hypersensitivity pneumonitis). Mild scarring/atelectasis in the anterior upper lungs progressive but the findings are otherwise stable since 07/01/2022. 4. Hepatomegaly and steatosis. COMMENTS: The presence of pulmonary emphysema on CT is an independent risk factor for lung cancer. In the absence of a history or active diagnosis of lung cancer, it is recommended that this patient with emphysema be evaluated for enrollment in a low dose CT lung cancer screening program. Laboratory Results WBC 8.94 10^3/uL (3.29-11.43) 06/01/24 04:36 RBC 3.88 10^6/uL (3.85-5.65) 06/01/24 04:36 Hgb 11.60 g/dL (11.27-16.99) 06/01/24 04:36 Hct 35.5 % (36-47) L 06/01/24 04:36 MCV 91.5 fl (85-98) 06/01/24 04:36 MCH 29.9 pg (27-33) 06/01/24 04:36 MCHC 32.7 g/dL (30-55) 06/01/24 04:36 RDW 13.0 % (12.1-15.1) 06/01/24 04:36 Plt Count 175 10^3/cmm (157-399) 06/01/24 04:36 MPV 10.4 fL (7.4-10.4) 06/01/24 04:36 Neut % (Auto) 40.8 % 06/01/24 04:36 Lymph % (Auto) 49.3 % 06/01/24 04:36 [place] % (Auto) 5.5 % 06/01/24 04:36 Eos % (Auto) 3.5 % 06/01/24 04:36 Baso % (Auto) 0.6 % 06/01/24 04:36 Neut # (Auto) 3.65 10^3/uL (1.8-7.7) 06/01/24 04:36 Lymph # (Auto) 4.4 10^3/uL (0.8-4.8) 06/01/24 04:36 [place] # (Auto) 0.5 10^3/uL (0.2-0.9) 06/01/24 04:36 Eos # (Auto) 0.3 10^3/uL (0.0-0.8) 06/01/24 04:36 Baso # (Auto) 0.1 10^3/uL (0.0-0.1) 06/01/24 04:36 Nucleated RBC % (auto) 0 % 06/01/24 04:36 Nucleated RBCs # 0.0 /100WBC 06/01/24 04:36 D-Dimer 0.32 ug/mLFEU (0-0.59) 05/28/24 14:17 Specimen Type Arterial 05/28/24 14:14 Sample Site Radial, left 05/28/24 14:14 ABG pH 7.47 (7.35-7.45) H 05/28/24 14:14 ABG pCO2 33.6 mmHg (35-45) L 05/28/24 14:14 ABG pO2 71.1 mmHg (80.0-100.0) L 05/28/24 14:14 ABG PO2/FiO2 Ratio 338 05/28/24 14:14 ABG HCO3 24.7 mmol/L (22-26) 05/28/24 14:14 ABG O2 Saturation 95.7 05/28/24 14:14 ABG Base Excess 1.6 mmol/L (-2.0-2.0) 05/28/24 14:14 Ian Test Pos 05/28/24 14:14 A-a O2 Gradient 4.9 mmHg (5-10) L 05/28/24 14:14 Hematocrit 45.8 % (37-47) 05/28/24 14:14 Hgb O2 Saturation 93.9 % (95-100) L 05/28/24 14:14 Carboxyhemoglobin 1.6 %THgb (0.4-20.1) 05/28/24 14:14 Methemoglobin 0.3 % (0.4-1.5) L 05/28/24 14:14 Total Hemoglobin 14.9 g/dL (12-16) 05/28/24 14:14 Sodium 135.0 mmol/L (131-143) 05/28/24 14:14 Potassium 4.3 mmol/L (3.5-5.0) 05/28/24 14:14 Glucose 298.0 mg/dL (70-115) H 05/28/24 14:14 Ionized Calcium 1.2 mmol/L (1.1-1.4) 05/28/24 14:14 O2 Delivery Device Room air 05/28/24 14:14 FiO2 21.0 % 05/28/24 14:14 Mortgage [employer]er ID [place] 05/28/24 14:14 Sodium 135 mmol/L (136-145) L 06/01/24 04:36 Potassium 3.4 mmol/L (3.5-5.1) L 06/01/24 04:36 Chloride 97 mmol/L (98-107) L 06/01/24 04:36 Carbon Dioxide 26 mmol/L (22-29) 06/01/24 04:36 Anion Gap 15.4 (5-19) 06/01/24 04:36 BUN 15 mg/dL (6-20) 06/01/24 04:36 Creatinine 0.7 mg/dL (0.5-0.9) 06/01/24 04:36 GFR Calculation 86.2 mL/min (90-130) L 06/01/24 04:36 Glucose 175 mg/dL (65-115) H 06/01/24 04:36 POC Glucose 251 mg/dL (70-110) H 06/01/24 11:04 Estimat Average Glucose 243 05/28/24 14:17 Hemoglobin A1c 10.1 % (4.0-6.0) H 05/28/24 14:17 Calculated Osmolality 285 mOsm/kg (285-295) 06/01/24 04:36 Lactic Acid 1.9 mmol/L (0.5-2.2) 05/28/24 14:17 Calcium 9.3 mg/dL (8.5-10.5) 06/01/24 04:36 Phosphorus 3.9 mg/dL (2.5-4.5) 05/31/24 06:13 Magnesium 1.8 mg/dL (1.7-2.3) 05/31/24 06:13 Total Bilirubin 0.3 mg/dL (0.15-1.2) 05/31/24 06:13 AST 26 U/L (0-32) 05/31/24 06:13 ALT 27 U/L (0-33) 05/31/24 06:13 Alkaline Phosphatase 113 U/L (35-105) H 05/31/24 06:13 Troponin T Baseline 9 ng/L (0-10) 05/28/24 14:17 Troponin T 120 Minute 9.44 ng/L (0-10) 05/28/24 15:55 Delta Troponin T 0.44 ABS# (0-10) 05/28/24 15:55 Troponin T Hi Sens 6Hr 9.27 ng/L (0-10) 05/28/24 20:05 Troponin T Hi Sens 6Hr Delta 0.27 ng/L (0-12) 05/28/24 20:05 C-Reactive Protein 20.6 mg/L (0.0-4.9) H 05/28/24 14:17 NT-Pro-B Natriuret Pep 124 pg/mL (0-125) 06/01/24 04:36 Total Protein 6.8 g/dL (6.6-8.7) 05/31/24 06:13 Albumin 3.7 g/dL (3.5-5.2) 05/31/24 06:13 Globulin 3.1 g/dL (1.3-4.6) 05/31/24 06:13 Triglycerides 812 mg/dL (0-150) H 05/28/24 14:17 Cholesterol 229 mg/dL (0-200) H 05/28/24 14:17 LDL Cholesterol Direct 91 mg/dL (0-100) 05/28/24 14:17 LDL Cholesterol, Calc Not Reportable 05/28/24 14:17 HDL Cholesterol 29 mg/dL (60-100) L 05/28/24 14:17 LDL/HDL Ratio Not Reportable 05/28/24 14:17 Cholesterol/HDL Ratio 7.90 mg/dL (0.0-4.40) H 05/28/24 14:17 TSH 1.19 uIU/mL (0.27-4.20) 05/28/24 14:17 Urine Color Yellow (Yellow) 05/28/24 19: Urine Appearance Clear (CLEAR) 05/28/24 19: Urine pH 5.5 (5-7) 05/28/24 19: Ur Specific [place] 1.031 (1.005-1.030) H 05/28/24 19: Urine Protein Trace (Negative) A 05/28/24 19: Urine Glucose (UA) 3+ (Normal) H 05/28/24 19: Urine Ketones Negative (Negative) 05/28/24 19: Urine Blood Negative (Negative) 05/28/24 19: Urine Nitrate Negative (Negative) 05/28/24 19: Urine Bilirubin Negative (Negative) 05/28/24 19: Urine Urobilinogen 1.0 mg/dL (Negative) 05/28/24 19:25 Ur Leukocyte Esterase Negative (Negative) 05/28/24 19:25 Urine RBC 0-2 /hpf (0-2) 05/28/24 19:25 Urine WBC 0-5 /hpf (0-5) 05/28/24 19:25 Ur Squamous Epith Cells 0-5 /hpf (0-5) 05/28/24 19: Amorphous Sediment Not Reportable 05/28/24 19:25 Urine Bacteria None seen /hpf (NONE) 05/28/24 19: Hyaline Casts 0.81 /lpf 05/28/24 19:25 Influenza A (PCR) Negative (Negative) 05/28/24 14:17 Influenza Type B (PCR) Negative (Negative) 05/28/24 14:17 RSV (PCR) Negative (Negative) 05/28/24 14:17 SARS-CoV-2 (PCR) Negative (Negative) 05/28/24 14:17 Vitals Last Vital Signs Temp 97.8 F 06/01/24 11:24 Pulse 78 06/01/24 11:24 Resp 17 06/01/24 11:24 BP 128/67 06/01/24 11:24 Pulse Ox 93 06/01/24 11:24 O2 Del Method Room Air 06/01/24 11:24 O2 Flow Rate 2 06/01/24 08:00 Discharge Plan Discharge Patient Disposition: Home Condition: Stable Prescriptions: New nitroglycerin 0.4 mg Tablet, Sublingual 0.4 mg sublingual Q5M PRN (Reason: Chest Pain) 30 Days Qty: 30 0RF fenofibrate nanocrystallized 145 mg Tablet 145 mg PO DAILY 30 Days Qty: 30 0RF prednisone 10 mg tablet See Rx Instructions .ROUTE .COMPLEX Qty: 53 0RF Rx Instructions: 4 tabs a day for 5 days, 3 tabs for 5 days, 2 tabs for 5 days, 1 tab for 5 days 0.5 tab for 5 days amoxicillin-pot clavulanate 875-125 mg tablet 1 tab PO BID 5 Days Qty: 10 0RF albuterol sulfate [Ventolin HFA] 90 mcg/actuation HFA aerosol inhaler 1 inh inhalation Q6H PRN (Reason: shortness of breath or wheezing) Qty: 8.5 0RF fluticasone propion-salmeterol [Advair Diskus] 100-50 mcg/dose blister with device 1 inh inhalation BID 30 Days Qty: 60 0RF insulin glargine [Lantus Solostar U-100 Insulin] 100 unit/mL (3 mL) insulin pen 20 unit SUBCUT QAM 30 Days Qty: 15 0RF (DME) glucometer testing kit See Rx Instructions .Route .MEDSUPPLY Qty: 1 0RF Rx Instructions: Check blood sugars 3 times daily, after meals, (DME) testing strips See Rx Instructions .Route .MEDSUPPLY Qty: 100 0RF Rx Instructions: Check blood sugars, 3 times daily, after meals (DME) lancets Misc See Rx Instructions .Route Qty: 200 0RF Rx Instructions: Check blood sugars, 3 times daily, after meals insulin aspart U-100 [Novolog FlexPen U-100 Insulin] 100 unit/mL (3 mL) insulin pen See Rx Instructions .ROUTE .COMPLEX MDD 30 Qty: 15 0RF Rx Instructions: Inject, subcu, 3 times daily, after meals, based on moderate dose insulin sliding scale provided Continued aspirin 81 mg tablet,delayed release (DR/EC) 81 mg PO DAILY nitroglycerin 0.4 mg tablet, sublingual 0.4 mg sublingual Q5M PRN (Reason: Chest Pain) Rx Instructions: do not exceed 3 doses per episode atorvastatin 20 mg tablet 20 mg PO BEDTIME hydrocodone-acetaminophen 10-325 mg tablet 1 tab PO Q8H omeprazole 40 mg capsule,delayed release(DR/EC) 40 mg PO BEDTIME metformin 500 mg tablet extended release 24 hr 500 mg PO QPM lisinopril 2.5 mg tablet 2.5 mg PO BID fluticasone propionate 50 mcg/actuation spray,suspension 2 spray INTRANASAL BID PRN (Reason: allergies) Discontinued Night Time Cold and Flu Relief 6.25-15-325 mg/15 mL Liquid 30 ml PO QPM Discharge Orders: Discharge Order (Routine); Ordered 06/01/24 Ordered By: Alejandro Patterson Referrals: Yamile Watters MD [Physician] - 1 week Demetrius Stokes MD, MBBS, MPH [Referring] - 7-10 days Josephine Cary MD [Primary Care Provider] - 06/04/24 9:00 am Discharge Diet: Cardiac Discharge Activity: Resume usual activity Patient Instructions: Nitroglycerin (By mouth), Prednisone (By mouth), Amoxicillin/Clavulanate Potassium (By mouth), Fenofibrate (By mouth), Insulin Aspart, Recombinant (By injection) (Novolog, Novolog..., Fluticasone/Salmeterol (By breathing) (Advair Diskus 100/50, Advair..., Insulin Glargine (By injection) (Lantus, Lantus SoloStar, [place], Semglee), COPD (Chronic Obstructive Pulmonary Disease) (DC), COPD Stoplight, Opioid Safety Activity Restrictions/Additional Instructions: -Please monitor your blood sugars closely -Monitor your blood sugars 3 times daily as after meals -Please record your blood sugars, and a blood sugar log -For your NovoLog -Please inject blood sugar after meals based on sliding scale provided -Do not inject insulin if you do not eat as hypoglycemia kills -This is a NovoLog sliding scale -Insulin sliding ?fingerstick? Insulin ?141-180?0 units/sq 181-220?2 units/sq ?221-260?4 units/sq ?261-300 6 units/sq ?301-350?8 units/sq ?351-400 10 units/sq ?401-450?12 units/sq >450? 14units/sq -If your blood sugar is greater than 500 go to the emergency room -If your blood sugar is less than 60 or at anytime you feel lightheaded or dizzy or diaphoretic or have chest palpitations check your blood sugar, and eat a hard candy or drink orange juice and go immediately to the emergency room -Remember hypoglycemia kills, so if his blood sugar is less than 60 we have to increase it by taking in a sugary meal such as a hard candy or orange juice and go to the emergency room -If you have any questions please call us where here to help -Please stop smoking -Please take antibiotics and steroid as prescribed -Please take inhalers as prescribed -Please follow-up with pulmonary in 1 week -Please follow-up with cardiology in 1 week -If you have recurrent chest pain please go to the emergency room Discharge Attestations Time Spent in Discharge Care*: greater than 30 min Quality Metrics Clinical Quality Measures [ No reported AMI, CVA or VTE this stay] Coding Level of Care Code 86157 Total time (in minutes) for Discharge: 45 Diagnoses Chest pain R07.9 COPD with acute exacerbation J44.1
== END 2024-06-01 15:18 | disposition home or self-care (01) | DRG 193 ==
LOC: ER 16:16 → ER IP 16:26 → MEDSURG 23:45
PROVIDERS: Internal Medicine; Admitting Provider Family Medicine; Emergency Provider Emergency Medicine; PCP Family Medicine; Visit Provider Family Medicine
DX: J18.9 Pneumonia, unspecified organism (principal); J96.01 Acute respiratory failure with hypoxia; J44.1 Chronic obstructive pulmonary disease with (acute) exacerbation; J44.0 Chronic obstructive pulmonary disease with (acute) lower respiratory infection; F17.201 Nicotine dependence, unspecified, in remission; I10 Essential (primary) hypertension; E78.5 Hyperlipidemia, unspecified; E78.1 Pure hyperglyceridemia; I25.10 Atherosclerotic heart disease of native coronary artery without angina pectoris; E11.65 Type 2 diabetes mellitus with hyperglycemia; Z79.82 Long term (current) use of aspirin; Z79.84 Long term (current) use of oral hypoglycemic drugs; Z79.899 Other long term (current) drug therapy; Z88.8 Allergy status to other drugs, medicaments and biological substances; Z11.52 Encounter for screening for COVID-19; Z95.5 Presence of coronary angioplasty implant and graft; Z87.19 Personal history of other diseases of the digestive system
CPT/HCPCS: 36415; 36416; 36600; 71045; 71275; 80048; 80051; 80053; 80061; 81001; 82330; 82805; 82962; 83036; 83605; 83721; 83735; 83880; 84100; 84443; 84484; 85025; 85378; 86140; 87040; 87637; 93005; 93306; 94640; 94664; 94760; 96365; 96372; 96375; 99285; J0456; J0696; J1650; J1815; J2270; J2405; J2470; J2765; J2919; J3490; J7050; J7512; J7613; J7626

== ENCOUNTER 2024-06-28 21:42 | Emergency (ER) | payer MEDICAID, SELFPAY ==
[2024-06-28 22:01] VITALS: BP 127/76; PULSE 87; RESP 18; TEMP 36.6; O2SAT 94
[2024-06-28 22:14] LABS: Glucose Point of Care 322 mg/dL (70-110)
--- NOTE | 2024-06-28 22:24 | W.ED.RECABL ---
HPI - Recheck/Abnormal Lab/Rx General: Chief Complaint: Recheck/Abnormal Lab/Rx Stated Complaint: Blood sugar to be checked Time Seen by Provider: 06/28/24 22:08 Source: patient Mode of arrival: ambulatory Limitations: no limitations History of Present Illness: Came for blood sugar check. Was high so she wanted to see me. We discussed giving her a dose of insulin prior to heading home. The pharmacies were just out of her brand of strips. She was starting to feel like her blood sugar was high but she wanted to make sure it was not too high. Encouraged hydration and continue compliance with her insulin therapy Related Data Home Medications ?Medication ?Instructions ?Recorded ?Confirmed aspirin 81 mg tablet,delayed 81 mg PO DAILY 05/13/20 05/28/24 release atorvastatin 20 mg tablet 20 mg PO BEDTIME 05/13/20 05/28/24 nitroglycerin 0.4 mg sublingual 0.4 mg sublingual Q5M PRN Chest 05/13/20 05/28/24 tablet Pain hydrocodone 10 mg-acetaminophen 1 tab PO Q8H 12/15/21 05/28/24 325 mg tablet lisinopril 2.5 mg tablet 2.5 mg PO BID 12/15/21 05/28/24 metformin 500 mg tablet,extended 500 mg PO QPM 12/15/21 05/28/24 release 24 hr omeprazole 40 mg capsule,delayed 40 mg PO BEDTIME 12/15/21 05/28/24 release fluticasone propionate 50 2 spray intranasal BID PRN 05/18/24 05/28/24 mcg/actuation nasal allergies spray,suspension Previous Rx's ?Medication ?Instructions ?Recorded albuterol sulfate 90 mcg/actuation 1 inh inhalation Q6H PRN shortness 06/01/24 aerosol inhaler (Ventolin HFA) of breath or wheezing #8.5 grams fenofibrate nanocrystallized 145 145 mg PO DAILY 30 days #30 tabs 06/01/24 mg tablet fluticasone 100 mcg-salmeterol 50 1 inh inhalation BID 30 days #60 ea 06/01/24 mcg/dose blistr powdr for inhalation (Advair Diskus) glucometer testing kit #1 ea 06/01/24 insulin aspart U-100 100 unit/mL See Rx Instructions .Route 06/01/24 (3 mL) subcutaneous pen (Novolog .COMPLEX #15 mL FlexPen U-100 Insulin aspart) insulin glargine 100 unit/mL (3 20 unit (0.2 mL) SUBCUT QAM 30 06/01/24 mL) subcutaneous pen (Lantus days #15 mL Solostar U-100 Insulin) lancets #200 ea 06/01/24 nitroglycerin 0.4 mg sublingual 0.4 mg sublingual Q5M PRN Chest 06/01/24 tablet Pain 30 days #30 tabs prednisone 10 mg tablet See Rx Instructions .Route 06/01/24 .COMPLEX #53 tabs testing strips #100 ea 06/01/24 Allergies Allergy/AdvReac Type Severity Reaction Status Date / Time STEROIDS AdvReac Intermediate ADR-Migrain Uncoded 06/28/24 22:06 e Review of Systems General: Reports: 10 or more systems reviewed and unremarkable except in HPI and below PFSH ED PFSH: Medical History Diabetes Hyperlipemia COPD (chronic obstructive pulmonary disease) Social History Smoking and tobacco/nicotine status: never used tobacco/nicotine Alcohol intake: never Substance/Drug Use: never Physical Exam Const: COMMON NORMALS: no acute distress, average body habitus, patient oriented x3, healthy appearing, alert and well nourished GENERAL APPEARANCE: well kempt and well developed HENMT: COMMON NORMALS: normocephalic, atraumatic, external ears normal and moist oral mucous membranes HEAD & SCALP: normocephalic and atraumatic EXTERNAL EAR: Yes external ears normal Eye: COMMON NORMALS: Equal, round and reactive pupils present, EOMs intact bilaterally and conjunctivae normal CONJUNCTIVA: Yes conjunctivae normal PUPIL: Yes Equal, round and reactive pupils present Neck/C-Spine: COMMON NORMALS: full ROM, no lymphadenopathy and supple Chest: CHEST: Yes Symmetrical chest wall rise and No Surgical scars present (Chest) Resp: COMMON NORMALS: normal respiratory effort, No retractions, No use of accessory muscles and clear to auscultation bilaterally AUSCULTATION: clear to auscultation bilaterally Cardio: COMMON NORMALS: regular rate, regular rhythm, S1 normal heart sound present, S2 normal heart sound present, No gallops present (Cardio), No clicks present (Cardio), No murmurs present (Cardio) and No rub (Cardio) RATE: regular rate RHYTHM: regular rhythm HEART SOUNDS: S1 normal heart sound present, S2 normal heart sound present and no murmurs PERIPHERAL PULSES: other (Radial pulses 2+ and symmetric) GI: COMMON NORMALS: Soft to palpation, non-tender and no masses INSPECTION: No abdominal distension PALPATION: Yes Soft to palpation, No Guarding due to palpation present (GI) and No Rebound tenderness present : COMMON NORMALS: Yes no CVA tenderness BLADDER/KIDNEY EXAM: Yes no CVA tenderness Back/Pelvis: COMMON NORMALS: no CVA tenderness Extremity: COMMON NORMALS: normal to inspection, full ROM, capillary refill normal and no clubbing, cyanosis or edema Neuro: COMMON NORMALS: patient oriented x3 SENSORIUM/ORIENTATION: Yes alert Psych: APPEARANCE: Yes well kempt Skin: COMMON NORMALS: no rashes or lesions noted, no wounds, turgor normal and no jaundice GENERAL SKIN EXAM: no rashes or lesions noted and turgor normal Course Vital Signs: Vital signs: Vital Signs Temperature 97.8 F 06/28/24 22:01 Pulse Rate 87 06/28/24 22:01 Respiratory Rate 18 06/28/24 22:01 Blood Pressure 127/76 06/28/24 22:01 Pulse Oximetry 94 06/28/24 22:01 Oxygen Delivery Me thod Room Air 06/28/24 22:01 MDM - Recheck/Abnormal Lab/Rx Medical Decision Making Patient with slightly elevated blood sugar. Vitals are normal. Patient's exam is normal. Blood sugars 322 will give her 7 units of aspart and discharged home. She reports she normally uses a sliding scale at home. Medical Records I reviewed the patient's medical records. Lab Data I reviewed the patient's lab results. Laboratory Results POC Glucose 322 mg/dL (70-110) H 06/28/24 22:05 No radiology studies performed this visit Discharge Plan Discharge Patient Disposition: Home Clinical Impression: Acute hyperglycemia Condition: Stable Prescriptions: No Action aspirin 81 mg tablet,delayed release (DR/EC) 81 mg PO DAILY nitroglycerin 0.4 mg tablet, sublingual 0.4 mg sublingual Q5M PRN (Reason: Chest Pain) Rx Instructions: do not exceed 3 doses per episode atorvastatin 20 mg tablet 20 mg PO BEDTIME hydrocodone-acetaminophen 10-325 mg tablet 1 tab PO Q8H omeprazole 40 mg capsule,delayed release(DR/EC) 40 mg PO BEDTIME metformin 500 mg tablet extended release 24 hr 500 mg PO QPM lisinopril 2.5 mg tablet 2.5 mg PO BID fluticasone propionate 50 mcg/actuation spray,suspension 2 spray INTRANASAL BID PRN (Reason: allergies) nitroglycerin 0.4 mg Tablet, Sublingual 0.4 mg sublingual Q5M PRN (Reason: Chest Pain) 30 Days Qty: 30 0RF fenofibrate nanocrystallized 145 mg Tablet 145 mg PO DAILY 30 Days Qty: 30 0RF prednisone 10 mg tablet See Rx Instructions .ROUTE .COMPLEX Qty: 53 0RF Rx Instructions: 4 tabs a day for 5 days, 3 tabs for 5 days, 2 tabs for 5 days, 1 tab for 5 days 0.5 tab for 5 days albuterol sulfate [Ventolin HFA] 90 mcg/actuation HFA aerosol inhaler 1 inh inhalation Q6H PRN (Reason: shortness of breath or wheezing) Qty: 8.5 0RF fluticasone propion-salmeterol [Advair Diskus] 100-50 mcg/dose blister with device 1 inh inhalation BID 30 Days Qty: 60 0RF insulin glargine [Lantus Solostar U-100 Insulin] 100 unit/mL (3 mL) insulin pen 20 unit SUBCUT QAM 30 Days Qty: 15 0RF insulin aspart U-100 [Novolog FlexPen U-100 Insulin] 100 unit/mL (3 mL) insulin pen See Rx Instructions .ROUTE .COMPLEX MDD 30 Qty: 15 0RF Rx Instructions: Inject, subcu, 3 times daily, after meals, based on moderate dose insulin sliding scale provided (DME) glucometer testing kit See Rx Instructions .Route .MEDSUPPLY Qty: 1 0RF Rx Instructions: Check blood sugars 3 times daily, after meals, (DME) testing strips See Rx Instructions .Route .MEDSUPPLY Qty: 100 0RF Rx Instructions: Check blood sugars, 3 times daily, after meals (DME) lancets Misc See Rx Instructions .Route Qty: 200 0RF Rx Instructions: Check blood sugars, 3 times daily, after meals Discharge Orders: Discharge ED (Routine); Ordered 06/28/24 Ordered By: Ozzie Greer: Josephine Cary MD [Primary Care Provider] - Discharge Diet: Diabetic Discharge Activity: Resume usual activity Patient Instructions: Diabetic Hyperglycemia (ED) Print Language: Togolese Coding Level of Care Code 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
[2024-06-28] MEDS: insulin lispro 100 unit/1 mL 7 UNIT SUBCUT (22:56)
== END 2024-06-28 23:05 | disposition home or self-care (01) ==
PROVIDERS: Emergency Provider Emergency Medicine; PCP Family Medicine
DX: E11.65 Type 2 diabetes mellitus with hyperglycemia (principal); Z79.84 Long term (current) use of oral hypoglycemic drugs; Z79.4 Long term (current) use of insulin; E78.5 Hyperlipidemia, unspecified; J44.9 Chronic obstructive pulmonary disease, unspecified
CPT/HCPCS: 36416; 82962; 96372; 99283; J1815